=== PATIENT | female | born 1990 | race Caucasian/White ===

== ENCOUNTER → 2022-06-24 | Outpatient (CLI) | payer MEDICAID, SELFPAY ==
[2022-06-24 16:29] LABS: Absolute Lymphocyte Count 1.89 X10^3/uL (0.83-4.51); Absolute Neutrophil Count 3.1 X10^3/uL (2.0-7.7); Basophil# 0.02 X10^3/uL; Basophil% 0.4 % (0-1); Eosinophils% 1.8 % (0-5); Hematocrit 41.1 % (37-47); Hemoglobin 13.2 g/dL (12.0-15.0); Lymphocyte # 1.89 X10^3/ul (0.83-4.51); Lymphocyte % 34.1 % (19-41); Mean Corp Hgb Conc 32.1 g/dL (32-36); Mean Corpuscular Hgb 29.8 pg (27.0-32.0); Mean Corpuscular Volume 92.8 fL (81-99); Mean Platelet Vol. 11.6 fl (6.2-12.0); Monocyte# 0.42 X10^3/uL; Monocyte% 7.6 % (0-10); NRBC Flagged by Analyzer 0 % (0-5); Neutrophil # 3.09 X10^3/uL (2.7-7.7); Neutrophil % 55.7 % (47-70); Platelet Count 265 K/mm3 (150-450); RBC Distribution Width CV 12.7 % (11.6-14.6); RBC Distribution Width SD 43.6 fl (35.1-43.9); Red Blood Count 4.43 M/mm3 (4.2-5.4); White Blood Count 5.5 K/mm3 (4.4-11.0)
[2022-06-24 16:51] LABS: ALB/GLOB Ratio 1.2 RATIO (0.9-2.4); AST(SGOT) 16 U/L (15-37); Alanine Aminotransfer ALT/SGPT 30 U/L (13-56); Albumin, Serum 4.2 g/dL (3.2-5.0); Alkaline Phosphatase 55 U/L (45-117); Anion Gap 5 (5-15); BUN 16 mg/dL (7-18); BUN/Creat Ratio 27.5 RATIO (10-20); Calcium,Total 9.1 mg/dL (8.5-10.1); Chloride 105 mmol/L (98-107); Creatinine, Serum 0.58 mg/dL (0.55-1.02); EST Glomerular Filtration Rate 129 mL/min (>60); Est Glom Filt Rate - Afr Amer 156 mL/min (>60); Ferritin 43 ng/mL (8-252); Globulin 3.4 g/dL (2.2-4.2); Glucose 91 mg/dL (74-106); Iron 125 ug/dL (50-170); Iron Binding Capacity,Total 332 ug/dL (250-450); Potassium 4.1 mmol/L (3.5-5.1); Protein, Total 7.6 g/dL (6.4-8.2); Sodium Level 139 mmol/L (136-145)
[2022-06-24 16:53] LABS: Vitamin B12 932 pg/mL (211-911); Vitamin D,25 Hydroxy 96.9 ng/mL
== END | disposition home or self-care (01) ==
LOC: LABSPEC 15:37
PROVIDERS: Referring Provider Nurse Practitioner Family; Visit Provider Nurse Practitioner Family
DX: R53.83 Other fatigue (principal); R53.1 Weakness; R06.02 Shortness of breath; R63.4 Abnormal weight loss
CPT/HCPCS: 80053; 82306; 82607; 82728; 83540; 83550; 85025

== ENCOUNTER → 2022-08-06 | Outpatient (CLI) | payer MEDICAID, SELFPAY ==
[2022-08-08 08:08] LABS: Vitamin D,25 Hydroxy 84.6 ng/mL
== END | disposition home or self-care (01) ==
PROVIDERS: Visit Provider Nurse Practitioner Family
DX: E55.9 Vitamin D deficiency, unspecified (principal)
CPT/HCPCS: 82306

== ENCOUNTER → 2022-11-25 | Outpatient (CLI) | payer MEDICAID, SELFPAY ==
[2022-11-25 11:34] LABS: ALB/GLOB Ratio 1.2 RATIO (0.9-2.4); AST(SGOT) 18 U/L (15-37); Alanine Aminotransfer ALT/SGPT 25 U/L (13-56); Albumin, Serum 4.1 g/dL (3.2-5.0); Alkaline Phosphatase 50 U/L (45-117); Anion Gap 6 (5-15); BUN 14 mg/dL (7-18); BUN/Creat Ratio 19.1 RATIO (10-20); Calcium,Total 9.1 mg/dL (8.5-10.1); Chloride 105 mmol/L (98-107); Creatinine, Serum 0.73 mg/dL (0.55-1.02); EST Glomerular Filtration Rate 99 mL/min (>60); Est Glom Filt Rate - Afr Amer 120 mL/min (>60); Ferritin 23 ng/mL (8-252); Globulin 3.4 g/dL (2.2-4.2); Glucose 86 mg/dL (74-106); Iron 52 ug/dL (50-170); Potassium 4.2 mmol/L (3.5-5.1); Protein, Total 7.5 g/dL (6.4-8.2); Sodium Level 141 mmol/L (136-145)
== END | disposition home or self-care (01) ==
PROVIDERS: PCP Nurse Practitioner Family; Referring Provider Nurse Practitioner Family; Visit Provider Nurse Practitioner Family
DX: R59.0 Localized enlarged lymph nodes (principal); R53.82 Chronic fatigue, unspecified; R53.81 Other malaise; R06.02 Shortness of breath; R63.4 Abnormal weight loss
CPT/HCPCS: 80053; 82728; 83540

== ENCOUNTER → 2023-01-02 | Outpatient (CLI) | payer MEDICAID, SELFPAY ==
[2023-01-06 09:08] LABS: Immunoglobulin A 210 mg/dL (87-352); Immunoglobulin E 23 IU/mL (6-495); Immunoglobulin G 1271 mg/dL (586-1602); Immunoglobulin M 70 mg/dL (26-217)
== END | disposition home or self-care (01) ==
LOC: LABSPEC 15:48
PROVIDERS: PCP Nurse Practitioner Family; Referring Provider Nurse Practitioner Family; Visit Provider Nurse Practitioner Family
DX: B99.9 Unspecified infectious disease (principal)
CPT/HCPCS: 82784; 82785

== ENCOUNTER → 2023-02-21 | Outpatient (CLI) | payer MEDICAID, SELFPAY ==
[2023-02-21 15:59] LABS: Absolute Neutrophil Count 5.2 X10^3/uL (2.0-7.7); Basophil# 0.08 X10^3/uL; Eosinophil# 0.14 X10^3/uL; Eosinophils% 1.7 % (0-5); Hematocrit 42.3 % (37-47); Hemoglobin 13.8 g/dL (12.0-15.0); Lymphocyte % 27.7 % (19-41); Mean Corp Hgb Conc 32.6 g/dL (32-36); Mean Corpuscular Hgb 31.2 pg (27.0-32.0); Mean Corpuscular Volume 95.7 fL (81-99); Mean Platelet Vol. 11.9 fl (6.2-12.0); Monocyte% 7.2 % (0-10); NRBC Flagged by Analyzer 0 % (0-5); Neutrophil # 5.16 X10^3/uL (2.7-7.7); Platelet Count 268 K/mm3 (150-450); RBC Distribution Width CV 13.1 % (11.6-14.6); RBC Distribution Width SD 46.6 fl (35.1-43.9); Red Blood Count 4.42 M/mm3 (4.2-5.4); White Blood Count 8.3 K/mm3 (4.4-11.0)
[2023-02-21 16:31] LABS: ALB/GLOB Ratio 1.2 RATIO (0.9-2.4); AST(SGOT) 12 U/L (15-37); Alanine Aminotransfer ALT/SGPT 26 U/L (13-56); Alkaline Phosphatase 56 U/L (45-117); Anion Gap 7 (5-15); BUN 15 mg/dL (7-18); Chloride 106 mmol/L (98-107); Cholesterol 124 mg/dL (200); Creatinine, Serum 0.83 mg/dL (0.55-1.02); EST Glomerular Filtration Rate 85 mL/min (>60); Est Glom Filt Rate - Afr Amer 103 mL/min (>60); Ferritin 11 ng/mL (8-252); Free T3 2.7 pg/mL (2.18-3.98); Globulin 3.4 g/dL (2.2-4.2); Glucose 85 mg/dL (74-106); High Density Lipoprotein 45 mg/dL; Iron 66 ug/dL (50-170); Potassium 4.2 mmol/L (3.5-5.1); Protein, Total 7.4 g/dL (6.4-8.2); Sodium Level 141 mmol/L (136-145); T4 Free Direct 0.89 ng/dL (0.76-1.46); Thyroid Stim Hormone (TSH) 1.29 uIU/mL (0.358-3.74); Triglycerides 98 mg/dL; Very Low Density Lipoprotein 20 mg/dL (5-40)
[2023-02-21 16:45] LABS: Vitamin B12 628 pg/mL (211-911)
== END | disposition home or self-care (01) ==
PROVIDERS: PCP Nurse Practitioner Family; Referring Provider Nurse Practitioner Family; Visit Provider Nurse Practitioner Family
DX: R59.0 Localized enlarged lymph nodes (principal); R53.82 Chronic fatigue, unspecified; R53.81 Other malaise; R06.02 Shortness of breath; R63.4 Abnormal weight loss; F41.9 Anxiety disorder, unspecified; Z77.120 Contact with and (suspected) exposure to mold (toxic)
CPT/HCPCS: 84207; 80053; 80061; 82306; 82607; 82728; 83540; 84439; 84443; 84481; 85025

== ENCOUNTER 2023-06-06 08:00 | Outpatient (RCR) | payer MEDICAID, SELFPAY ==
--- NOTE | 2023-06-06 10:15 | BH.SGPN.GN ---
Behaviors/Verbalizations/Mental Status: []Pt alert and oriented, neatly dressed and groomed. Eye contact good. Motor activity appropriate. Speech within normal limits. Affect congruent-wearing a mask, mood anxious. Thoughts linear, logical, no signs of hallucinations or delusions. Client Response/Progress/Benefit: [] Pt engaged in group session AEB listening to others, taking notes throughout, and engaged in the activity. Group attentive during psychoeducation about emotion regulation and dysregulation. Pt?s first day of IOP tx, but she was nodding a lot while peers talked about the impacts of emotional dysregulation. Appeared to connect with scenarios reviewed in group on emotion regulation vs dysregulation. Pt benefited from session by gaining an increased understanding on the importance of managing emotions. Pt to continue IOP to prevent decompensation, reduce safety behaviors, and improve daily functioning. Narrative Note: []
--- NOTE | 2023-06-06 11:15 | BH.SGPN.GN ---
Behaviors/Verbalizations/Mental Status: []Pt alert and oriented, casually dressed and groomed. Eye contact good. Motor activity appropriate. Speech within normal limits. Affect congruent, mood anxious. Thoughts linear, logical, no signs of hallucinations or delusions. Client Response/Progress/Benefit: [] Pt active participant in session AEB Pt listening attentively to peers and at times providing input. Attentive during psychoeducation on 4 zones of regulation. Pt able to identify feelings and behaviors for each zone. Pt identified coping skills one can use to support self in each zone. Identified one skill from each zone she can practice which included: win journal, celebrate wins, breathing exercises, and progressive muscle relaxation. Benefited from increased education on zones of regulation or stages of alertness for emotions and healthy coping skills to use for each zone. Will continue IOP tx to continue working on fear ladder, increase distress tolerance, and prevent decompensation.
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
--- NOTE | 2023-06-06 11:20 | BH.MTP ---
Master Treatment Plan Patient Information Program Physician:: Dr. Casey Primary Therapist:: Kami WHITE Psychiatric Diagnoses Psychiatric Diagnoses:: OCD F 44; PTSD; Major Depressive Disorder, recurrent, severe, without psychosis, Generalized anxiety disorder Diagnosis Code(s):: F 42 Estimated LOS Estimated LOS (in weeks):: 6 Problem/Goal #1 Problem/Goal #1 Stated Goal:: Pt will reduce overall frequency and intensity of anxiety, OCD, and intrusive thoughts so that daily functioning is less impaired. Description of Barriers: Pt has severe OCD that is preventing pt from living her life and building relationships. Pt also has history of trauma that reinforces her OCD cleanliness obsessions and compulsions. Pt recently lost her job and due to issues with mold, pt had recent healthy issues and lost most of her belongings. Pt also moved to a new city and has limited support outside of her parents. Functional Impact: Pt is a 33 year-old female with a history of OCD, PTSD, LUX, and MDD. Pt was referred to [facility] tx by her outpatient therapist due to exacerbation of mental health symptoms which have been impacting her functioning. Pt's symptoms have been worsening since pt was fired from her job with little explanation. Pt has struggled with mental health for years, but pt's OCD symptoms have become very severe. Pt reports she has intrusive thoughts about contamination and health and compulsions of handwashing up to 100 times a day. 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 Pt currently endorses a depressed mood, crying spells, thoughts of , isolation, avoidance, poor concentration, issues with memory, panic attacks, constant fear, and racing thoughts. Pt's symptoms are impacting her daily, occupational, familial, and social functioning. Goal Relevant Strengths/Supports: Pt has support from her parents and she is highly motivated. Pt has had therapy in the past and found it helpful. Objectives Objective #1: Stated Objective: Pt will identify 2-3 anxiety and OCD triggers and 2 coping skills to use to manage anxiety as shown by reducing DSM-5 scores for anxiety and OCD. Interventions: Through group and individual sessions, pt will gain awareness of anxiety and OCD triggers and learn numerous techniques to manage anxiety and OCD symptoms. Therapist will teach mindfulness and other calming techniques to manage symptoms and increase distress tolerance skills. Therapist will also help pt utilize mindfulness skills to sit with the uncomfortable to increase confidence in managing triggers. Discharge Criteria: Pt will have met this goal when pt can identify at least 2 triggers and 2 ways to cope with anxiety and show a reduction of DSM-5 scores for anxiety and OCD. Target Date: 07/18/23 Review Date: 06/27/23 Status: open Objective #2: Stated Objective: Pt will improve ability to cope with OCD symptoms and reduce avoidance by setting 1-2 small exposure goals each week. Interventions: Through group and individual therapy, pt will gain skills on distress tolerance and sitting with the uncomfortable. Therapist will help pt set small, realistic exposure goals each week. Therapist will have pt practice these goals both in session and at home. Therapist will provide psychoeducation on why this is important to reducing anxiety, OCD, and phobias. Therapist will also provide psychoeducation on intrusive thinking and reducing safety behaviors. Discharge Criteria: Pt will have accomplished this goal when pt can report accomplishing at least 1 exposure goal per week and can report reduced avoidance overall. Target Date: 07/18/23 Review Date: 06/27/23 Status: open Problem/Goal #2 Problem/Goal #2 Stated Goal:: Pt will reduce depressive symptoms, lack of motivation, and passive thoughts of due to major depressive disorder Description of Barriers: Pt has severe OCD that is preventing pt from living her life and building relationships. Pt also has history of trauma that reinforces her OCD cleanliness obsessions and compulsions. Pt recently lost her job and due to issues with mold, pt had recent healthy issues and lost most of her belongings. Pt also moved to a new city and has limited support outside of her parents. Functional Impact: Pt is a 33 year-old female with a history of OCD, PTSD, LUX, and MDD. Pt was referred to [facility] tx by her outpatient therapist due to exacerbation of mental health symptoms which have been impacting her functioning. Pt's symptoms have been worsening since pt was fired from her job with little explanation. Pt has struggled with mental health for years, but pt's OCD symptoms have become very severe. Pt reports she has intrusive thoughts about contamination and health and compulsions of handwashing up to 100 times a day. 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 Pt currently endorses a depressed mood, crying spells, thoughts of , isolation, avoidance, poor concentration, issues with memory, panic attacks, constant fear, and racing thoughts. Pt's symptoms are impacting her daily, occupational, familial, and social functioning. Goal Relevant Strengths/Supports: Pt has support from her parents and she is highly motivated. Pt has had therapy in the past and found it helpful. Objectives Objective #1: Stated Objective: Pt will learn and utilize 2-3 healthy coping strategies to better manage depressive symptoms and reduce DSM-5 symptoms for depression. Interventions: Through group and individual sessions, therapist will help pt identify triggers and warning signs of depression and emotional dysregulation including emotional, physical, and behavioral changes. Therapist will teach pt various coping skills to manage her symptoms. Therapist will use cognitive restructuring techniques and help pt gain awareness of negative thoughts that reinforce depressive cycles. Therapist will help pt incorporate mindfulness and emotional regulation skills when dealing with difficult situations. Discharge Criteria: Pt will have met this goal when she can report learning and using at least 2 coping skills to manage depressive symptoms and her DSM-5 scores for depression have decreased. Target Date: 07/18/23 Review Date: 06/27/23 Status: open Objective #2: Stated Objective: Pt will identify at least 2-3 negative self-talk messages used to reinforce negative core beliefs, worthlessness, and isolation and replace thoughts with balanced, realistic messages. Interventions: Therapist will help pt identify distorted, negative beliefs about self and replace with more realistic, affirmative messages. Therapist will use CBT and DBT to help pt increase insight to the connection between thoughts, emotions, and behaviors. Therapist will encourage pt to practice thought challenging. Discharge Criteria: Pt will have achieved this goal when can verbalize at least 2 cognitive distortions and effectively replace those thoughts with affirmative messages. Target Date: 07/18/23 Review Date: 06/27/23 Status: open
--- NOTE | 2023-06-06 11:20 | BH.COMM ---
Communication Note Communication with Client Communication Note: Met with pt to complete initial paperwork and administer the CSSR-S screening and risk assessment. Pt is low risk per the CSSR-S screening and risk assessment. Pt has fleeting thoughts about not wanting to wake up, but this is only when pt feels that her anxiety and OCD are too severe. Pt has numerous protective factors including wanting to get some day and have kids, her ed, and her family. Discussed case with Dr. Casey and pt will be admitted to [facility] tx with a diagnosis of OCD (F 44)
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
--- NOTE | 2023-06-07 08:42 | BH.COMM_ITS ---
Communication Note Communication with Client Communication Note: Pt was scheduled to meet with program psychiatrist this AM, however psychiatrist became acutely ill (laryngitis and fever) and is unable to come to work. Discussed case with treatment team and psychiatrist. Plan to continue with admission to [facility] with dx of Obsessive Compulsive Disorder (F42.0) and she will be evaluated once psychiatrist is able.
--- NOTE | 2023-06-07 10:15 | BH.SGPN.GN ---
Behaviors/Verbalizations/Mental Status: []Pt alert and oriented, neatly dressed and groomed. Eye contact good. Motor activity appropriate. Speech within normal limits. Affect congruent-wearing a mask. mood anxious. Thoughts linear, logical, no signs of hallucinations or delusions. Client Response/Progress/Benefit: [] Pt was an active participant in group discussions and experiential activity. Participated during interactive discussion in which group worked together to define resilience (i.e. continuing to bounce back from hardship; willingness to keep trying) and what makes being resilient hard. Pt shared learned helplessness and trauma can make it harder to be resilient. Participated during interactive discussion on if resilience is something we are born with or can learn. Able to relate the experiential activity back to topic of resilience. Worked well in small groups to identify strategies to build resilience. Benefited from increased awareness of the role of resilience in mental health and ways to build resilience. Will continue IOP tx to prevent decompensation, improve daily functioning, and increase distress tolerance skills. Narrative Note: []
--- NOTE | 2023-06-07 10:33 | BH.NA_ITS ---
Physical Data Vital Signs Pulse Rate: 70 Blood Pressure: 124/78 Height/Weight Height: 1.7 m Weight:: 53.524 kg Weight in Pounds: 118.0 lbs Current Medication Compliance Medication Compliance Do you take your medication as prescribed?: Yes Nutritional History Appetite Nutritional Instructions: Describe your appetite:: Fair Additional nutritional information:: Client states she was 130lbs prior to mold exposure one year ago, and her lowest weight was 116lbs. Client states she is trying to maintain/gain a little weight, but did have several months of nausea/vomiting after mold exposure. Client states her appetite is improving. Functional Assessment Sleep Pattern Describe any problems with sleeping: Client states she sleeps about 6-7 hours per night. Sensory/Communication Assess Communication Problems Do you have difficulty understanding what people are saying?: No Medical Problems/History Pain Assessment Do you have acute or chronic pain?: No Additional History Additional comments:: Lyme Disease Surgical History Surgical History Have you had any surgeries? If so, list type and date:: No Substance Abuse Substance Abuse Please describe substance abuse in the last 30 days:: Client denies alcohol, tobacco or substance use. Client states she drinks 8oz or less of coffee per day. Mental Status Summary Mental Status Significant Findings/Observations on Appearance and Mood:: Client is alert and oriented x 4. Client is casually groomed and is wearing a mask .Client is cooperative with assessment. Client makes good eye contact. Client's voice has normal rate and volume. Client does appear mildly anxious. Client has appropriate affect. Client makes logical associations and has normal processing. Client denies delusions/hallucinations. Client denies SI. Suicide Assessment Suicidal Ideation Are you currently or have you been suicidal in the past?: No Suicidal Intentional Rating Scale (SIRS): No suicidal thoughts (past or present) Physician Notification Past Psychiatric History MH Treatment Hx Past Psychiatric Medications:: Client has been on Zoloft since 2011 and has not been on any other mental health medications Age of first mental health symptoms: Client states she has had anxiety and some OCD symptoms for over 11 years (before age 22) and has been on medications since age 22. Current providers for mental health treatment (counselor, psychiatrist, protective services case worker, etc.): Client saw Dr. Ar Aquino one time, client also has a counselor Fall Risk Assessment Age Age: Less than 60 Mental Status Mental Status: Willing & able to ask for assistance when needed Physical Status Physical Status: No problems Impairments Impairments: None Elimination Elimination: Continent AND independent Gait or Balance Gait or Balance: Walks independently Hx of Falls History of falls in the past 6 months: No known history Medications/Substances Psychotropics:: Antidepressants Medications/substances used within the past 24 hours or ordered to administer: 1-2 of the medications/substances listed above Total Score Total Points:: 1 RN Summary of Impressions Impressions Recommendations Impressions: Psychiatric Issues: OCD, generalized anxiety disorder Level of Care How do the client's current symptoms and functional deficits support need for this level of care?: Client was referred to IOP by outpatient therapist for increase in an anxiety and increased intrusive thoughts regarding health concerns. Client states she had a severe mold exposure about a year ago, and had symptoms related to that (hair loss, weight loss, nausea/vomiting). Client states she also has had COVID several times, the last time being April 2023 which has given her continued brain fog. Client states she is on naltrexone due to brain fog. Client states she obsessively washes her hands and sometimes has more anxiety around people because she feels unsafe from contamination. Client states I know it sounds ridiculous, but even when I was the one that had COVID a few weeks ago, I was terrified I would decontaminate myself and I was washing my hands so many times a day . Client states she was on 100mg of Zoloft daily, and is currently down to 37.5mg daily due to weaning to take antifungal medications for mold exposure. Client states I don't think Zoloft ever really worked that well for me, but I really don't think its beneficial at all at 37.5mg . Client denies SI. IOP will promote gains and prevent further decompensa tion while providing social support and skills training.
[2023-06-07 10:44] VITALS: BP 124/78; PULSE 70
--- NOTE | 2023-06-07 11:15 | BH.SGPN.GN ---
Behaviors/Verbalizations/Mental Status: [] Eye contact is good. Motor activity is appropriate. Appearance is casual. Speech is Appropriate. Mood is anxious. Affect is congruent. Thoughts are linear and logical. No evidence of psychosis. Client Response/Progress/Benefit: [] Pt was an active participant in group discussions. Participated during interactive discussions and in experiential activity with peers. Pt identified 3 resiliency traits they have and how these traits currently help them. Pt identified Making Connections stating that her support system is important in keeping her going and encouraged.Another resilency traits she has is keeping things in perspective which helps her challenge if her anxiety is realistic. Benefited from practicing resiliency traits during experiential activity and identifying personal resiliency factors.Will continue in IOP to prevent decompensation, stabilize mood, increase healthy coping, and improve functioning. Narrative Note: []
--- NOTE | 2023-06-09 09:05 | BH.SGPN.GN ---
Behaviors/Verbalizations/Mental Status: [] Pt alert and oriented, neatly dressed and groomed. Eye contact good. Motor activity appropriate. Speech within normal limits. Affect congruent-wearing a mask, mood anxious. Thoughts linear, logical, no signs of hallucinations or delusions. Reviewed pt?s symptom tracker, no risk for suicidal ideation, plan, or intent 06/09/23 Client Response/Progress/Benefit: []Pt responded well to session, attentive and engaged. Pt reports feeling expectant today as pt made it through her first week of IOP tx and pt hopes that growth is coming for pt. Pt stated yesterday she had the day off and this felt like pressure to pt so she struggled with getting out of bed. Pt did end up getting some things done and pt gave herself credit in a win journal. Pt has been struggling with OCD symptoms that have been impacting pt's overall functioning and kept pt from living her life. Pt appeared to benefit from reflecting on her willing to learn and gain skills. Pt will continue IOP tx to prevent decompensation, improve daily functioning, and increase distress tolerance skills. Narrative Note: []
--- NOTE | 2023-06-09 10:10 | BH.SGPN.GN ---
Behaviors/Verbalizations/Mental Status: []Client alert and oriented, casually dressed and groomed. Eye contact good. Motor activity appropriate. Speech within normal limits. Affect congruent, mood content and anxious. Thoughts linear, logical, no signs of hallucinations or delusions. Client Response/Progress/Benefit: []Client receptive to session AEB providing input throughout, listening attentively to others, and taking notes. Attentive throughout psychoeducation on the cognitive triangle and maintenance cycles. Worked on identifying own vicious cycle. Engaged in group discussion reviewing the impact of daily activities and behaviors in either reinforcing unhealthy maintenance cycles and depression or assisting in reducing symptoms (?down? vs ?up? activities). Client identified common ?down? activities they engage in as: isolating, snoozing her alarm, focusing on what she did wrong, and not setting goals. Common ?Up? activities client identified included: playing with pets, reading her bible, walking, stretching, and being social. Appeared to benefit from increased awareness of current behaviors and impact these have on mental health. Pt to remain in IOP tx to improve mood stability, increase use of distress tolerance/exposure skills, and prevent decompensation. Narrative Note: []
--- NOTE | 2023-06-09 11:10 | BH.SGPN.GN ---
Behaviors/Verbalizations/Mental Status: [] Eye contact is good. Motor activity is appropriate. Appearance is casual. Speech is Appropriate. Mood is euthymic. Affect is congruent. Thoughts are linear and logical. No evidence of psychosis. Client Response/Progress/Benefit: [] Pt responded well to session, attentive and engaged in group discussions and activity. Group discussed values and the benefits that knowing one's values can have on one's mental health. Pt explored own values and identified personal top values. Pt stated important value is mental/emotional health. Client set goals to join a musical group and use skills at home that she's learning from IOP. Pt appeared to benefit from exploring values and creating a weekly goal. Will continue in IOP to decrease anxious avoidance, increase healthy calming skills, and prevent decompensation.
--- NOTE | 2023-06-12 09:00 | BH.SGPN.GN ---
Behaviors/Verbalizations/Mental Status: [] Pt alert and oriented, neatly dressed and groomed. Eye contact good. Motor activity appropriate. Speech within normal limits. Affect congruent-wearing a mask, mood hopeful and anxious. Thoughts linear, logical, no signs of hallucinations or delusions. Reviewed pt?s symptom tracker, no risk for suicidal ideation, plan, or intent 06/12/23 Client Response/Progress/Benefit: [] Pt responded well to session, attentive and providing feedback to peers. Pt reports feeling hopeful this morning as pt saw some progress over the weekend with managing her OCD. Pt shared that she had been engaging in a compulsion of cleaning the washing machine after her clothes were clean, but she did not do this yesterday. Pt reported this gave her hope that she can learn to manage her symptoms. Pt was also vulnerable during group and shared about her struggles with OCD which helped pt reduce stigma and gain support. Pt's stressor this morning was her poor sleep hygiene and wanting to get back on a sleep schedule. Pt appeared to benefit from group feedback and support. Pt will continue IOP tx to prevent decompensation, improve daily functioning, and increase healthy coping skills. Narrative Note: []
--- NOTE | 2023-06-12 10:10 | BH.SGPN.GN ---
Behaviors/Verbalizations/Mental Status: [] Eye contact is good. Motor activity is appropriate. Appearance is casual. Speech is Appropriate. Mood is anxious and dysthymic. Affect is congruent. Thoughts are linear and logical. No evidence of psychosis. Client Response/Progress/Benefit: [] Pt was an active participant in group discussions. Attentive during psychoeducation on the 4 communication styles (Passive, Passive-Aggressive, Aggressive, and Assertive) and the obstacles to effective communication. Contributed during interactive discussion on the benefits of communicating effectively which included; having one's needs met, building connection with others, decreases stress and uncertainty, improved relationships, encouragement/increased motivation, increased trust, and increased understanding of others. Worked well in small group in which pt and peers identified the benefits and disadvantages to the different communication styles. Benefited from increased understanding of communication styles and how these can impact effective communication. Pt reports identifying most with passive communication, reporting this leads to not getting her needs met and over engaging in people pleasing behaviors. Will continue in IOP to prevent decompensation, reduce safety behaviors, and continue to improve functioning. Narrative Note: []
--- NOTE | 2023-06-12 14:26 | BH.MDN ---
Multi-Disciplinary Note Note 45-min Individual: Time Started:: 12:30 Date: 06/12/23 Purpose of session/treatment goals addressed:: To work on goal #1 of pt's tx plan. Eye Contact:: Good Motor Activity:: Appropriate Appearance:: Neat Speech:: Tangential and Rapid Mood:: Anxious Affect:: Congruent Thoughts:: Racing, Circular and No evidence of hallucinations/delusions noted Staff Interventions:: thought challenging, psychoeducation on: (OCD and setting goals for exposure therapy.), CBT techniques, strengths perspective, goal setting and other (reviewed homework- chapter one of the overcoming unwanted intrusive thoughts book.) Client Response:: Pt responded well to session, open to meeting with therapist. Pt shared a mental health win from over the weekend which was that pt did not wipe down the laundry machine after washing her clothes. Pt stated her intrusive thoughts often convince pt that things in her house are contaminated and this has significantly worsened since getting since a few weeks ago. Pt shared she worries that things she has already cleaned are still contaminated from when pt was sick. Pt reported that she logically knows she is having dumb thoughts, but pt is unable to move past these. Pt connected with the first chapter from the book mentioned above. Pt shared that her OCD is exhausting and consumes most of her time and energy. Pt receptive to working on identifying her false comfort / safety behaviors which will help pt create a fear ladder. These included: wearing a mask, taking a pen with her wherever she goes, having to change her clothes when she gets home, wiping things down multiple times a day, cleaning and rewashing things, and avoiding touching things. Pt shared her biggest fear is that she will get sick again like she did a few weeks ago or she will . Pt began ranking these safety behaviors by how much fear/anxiety they produce (1-10 with 10 being extreme fear). Pt will work on identifying more behaviors for homework that are less than 7/10 for anxiety. Risks/Concerns:: Pt denies any suicidal ideations or thoughts of . Progress Toward Goals/Plan:: Pt is starting her second week of IOP tx and pt reports benefitting from the group environment. Pt has also been more mindful of her compulsions and is working on reducing the frequency that she engages in these compulsions. Pt's OCD continues to interfere with her daily functioning and relationships. Pt reports she is still washing her hands constantly and she is constantly thinking about contamination risk. Pt receptive to working on a fear ladder and reading through the overcoming unwanted intrusive thoughts book. Pt will continue IOP tx to prevent decompensation, improve daily functioning, and gain distress tolerance skills. Time Stopped:: 13:15
--- NOTE | 2023-06-13 11:10 | BH.SGPN.GN ---
that the communication styles she commonly uses. She wants to work on being more assertive by practicing self confidence through I statements . Benefited from practicing in the moment communication skills as well as increased awareness of communication styles commonly used. Will continue in IOP to prevent decompensation, increase healthy coping, and improve functioning to return to work. Narrative Note: []
--- NOTE | 2023-06-14 11:15 | BH.SGPN.GN ---
Behaviors/Verbalizations/Mental Status: []Pt alert and oriented, neatly dressed and groomed. Eye contact good. Motor activity appropriate. Speech within normal limits. Affect congruent-wearing a mask, mood anxious. Thoughts linear, logical, no signs of hallucinations or delusions. Client Response/Progress/Benefit: [] Pt responded well to session, participating in activity and small group discussion. Group reviewed the rest of the defense mechanisms and discussed how these are adaptive, maladaptive, or somewhere in the schmidt. Pt shared her group discussed how suppression has caused more damage in their lives. Pt participated in the experiential activity which encouraged pts to draw a castle that portrayed their different defense mechanisms. Pt's defense mechanisms included suppression, denial, and rationalization. Pt shared that she is learning that she rationalizing a lot coping mechanisms that actually make anxiety worse. Pt reports wanting to work on reducing rationalizing by reducing engagement in safety behaviors. Appeared to benefit from gaining insight to the different defense mechanisms and learning coping skills. Pt will continue? IOP tx to prevent decompensation, improve daily functioning, and gain healthy coping skills. Narrative Note: []
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
--- NOTE | 2023-06-14 13:16 | BH.DR.ITP ---
Initial Treatment Plan Patient Information Visit Information: ADMISSION DATE: EXPECTED LOS: 4-6 weeks Problems/Symptoms Problem #1:: Anxiety Symptom:: Worry, rumination, panic attacks, intrusive thoughts, repetitive rituals, fear of contamination and illness, avoidance Problem #2:: Depression Symptom:: Sadness, hopelessness, worthlessness, guilt, anhedonia, passive thoughts of , biological disruption of weight and appetite, decreased concentration
--- NOTE | 2023-06-15 09:05 | BH.SGPN.GN ---
Behaviors/Verbalizations/Mental Status: [] Pt alert and oriented, casually dressed and groomed. Eye contact good. Motor activity appropriate. Speech within normal limits. Affect congruent, mood anxious. Thoughts linear, logical, no signs of hallucinations or delusions. Reviewed pt?s symptom tracker, no risk for suicidal ideation, plan, or intent 06/15/23 Client Response/Progress/Benefit: []Pt responded well to session, participating in processing and providing supportive feedback. Pt reports feeling like I'm in anticipation this morning sharing that she had a lot of anxiety yesterday and is trying to keep that from impacting her ability to be present today. Pt reports that she is going to try and practice mindfulness skills at various points throughout the day should she notice herself starting to disconnect. Expressed a mental health win as getting here today despite her anxiety. Additional win noted as having a conversation with her brother and learning more about her nephew. Shared this continues to be a stressor as she is somewhat estranged, but pt reports being grateful for what communication they have been able to have. Pt appeared to benefit from self-reflection on areas of progress, as well as from group support. Pt will continue IOP tx to maintain mood stability, continue to promote challenging her safety behaviors, and prevent decompensation. Narrative Note: []
--- NOTE | 2023-06-15 10:10 | BH.SGPN.GN ---
Behaviors/Verbalizations/Mental Status: [] Eye contact is good. Motor activity is appropriate. Appearance is casual. Speech is Appropriate. Mood is euthymic. Affect is congruent. Thoughts are linear and logical. No evidence of psychosis. Client Response/Progress/Benefit: []Pt engaged participant AEB listening to others, engaging in activity, and providing feedback at times. Attentive during psychoeducation and provided insight into obstacles in the way of mental wellness. Pt shared with group current mental health reality and desired mental health reality. Stated coming to IOP as step she is currently making to get closer to desired reality. Identified barriers to desired reality include: Self judgment, hiding feelings, habits to support anxiety, negative thinking, and low energy. Benefited from taking look at current mental health state and obstacles for progress. Pt to continue IOP to continue working on exposure therapy for anxiety, continue use of healthy coping skills, and prevent decompensation.
--- NOTE | 2023-06-15 11:10 | BH.SGPN.GN ---
Behaviors/Verbalizations/Mental Status: []Pt alert and oriented, casually dressed and groomed. Eye contact good. Motor activity appropriate. Speech within normal limits. Affect congruent, mood anxious, euthymic. Thoughts linear, logical, no signs of hallucinations or delusions. Client Response/Progress/Benefit: []Pt an active participant, encouraging peers and contributed as group brainstormed ideas on how to cope with internal barriers that keep Pt's stuck from moving towards goals. Worked with group to identify strategies to help overcome barriers. Identified personal barriers to desired reality. Pt wants to work on overcoming the barrier of feeling behind on her priorities by writing a daily to do list and prioritizing them by importance, as well as using opposite action. Benefited from group by identifying obstacles and solutions to desired reality.? Pt to continue IOP to prevent , reduce the use of unhealthy coping skills, and improve self-compassion. Narrative Note: []
--- NOTE | 2023-06-20 10:17 | BH.SGPN.GN ---
Behaviors/Verbalizations/Mental Status: [Patient was alert and oriented, casually dressed and groomed. Eye contact was good, motor activity normal, speech within normal limits. Affect congruent, mood anxious and content. Thoughts linear, logical, no signs of hallucinations or delusions. ] Client Response/Progress/Benefit: [Patient was an active participant in the group discussions AEB providing input and taking notes. Attentive during psychoeducation Goal Setting. Participated during the discussion on common barriers (procrastination, low motivation, unrealistic expectations, and fear of failure) and benefits (increased confidence, motivation, sense of purpose, and improved mood stability) of effective goal setting and completion. Patient reports struggling specifically with barriers of self-doubt, unrealistic expectations, and fear of failure. Benefited from increased awareness of mental health benefits of goals as well as psychoeducation on SMART goal criteria. Will continue in IOP to promote gains, further combat distorted thinking, and improve daily functioning.] Narrative Note: []
--- NOTE | 2023-06-20 11:05 | BH.SGPN.GN ---
Behaviors/Verbalizations/Mental Status: []Pt alert and oriented, casually dressed, appropriately groomed. Eye contact good. Motor activity appropriate. Speech within normal limits. Affect congruent, mood anxious and euthymic. Thoughts linear, logical, no signs of hallucinations or delusions. Client Response/Progress/Benefit: [] Pt was engaged during discussion and willing to complete the worksheet challenging them to develop a personal SMART goal. Pt chose the goal of only checking to see if the faucets are on 1-2 times prior to leaving the house in the morning. Pt stated this will help start morning off feeling more positive about self and less rushed. Pt identified intrusive thoughts as a barrier. Identified solutions such as creating a check list for herself, taking pictures, and continuing with her routine despite the thoughts. Pt receptive to identifying solutions for these barriers and willing to begin working on this goal. Benefited from this group by developing a short-term SMART goal related to mental health. Will continue IOP tx to improve self-compassion, increase healthy exposure, and prevent decompensation. Narrative Note: []
--- NOTE | 2023-06-21 09:10 | BH.SGPN.GN ---
n for today is optimistic . Daily sypmtom tracker notes 06/30 for anxiety and depression. Reports mood overall improved. Shared with the group the events that occurred over the holiday weekend. Commented on a reduction in her intrusive thoughts and anxiety of the past week. Discussion within the group helped her identify perspective and skills that have helped decrease anxiety and rumination. Pt reports I'm living in the moment more stating that she is actively utilizing strategies to stay engaged in the present discussions and responsibilities rather than focusing on what ifs of the future and possible upcoming stressors. Mindfulness. Progress noted per pt report as she is actively utilizing skills and implementing psychoeducation in areas of her life. Benefited from group support, encouragement, and feedback. Will continue in IOP to prevent decompensation, stablize mood, and improve functioning. Narrative Note: []
--- NOTE | 2023-06-22 09:05 | BH.SGPN.GN ---
Behaviors/Verbalizations/Mental Status: [] Eye contact is good. Motor activity is appropriate. Appearance is casual. Speech is Appropriate. Mood is anxious. Affect is congruent. Thoughts are linear and logical. No evidence of psychosis. Reviewed daily check in sheet and no reports of suicidal ideations or intent. Client Response/Progress/Benefit: [] Pt was an active participant in group discussion. Attentive. Emotion is upbeat and discouraged . Daily symptom tracker notes 2/5 for anxiety and 1/5 for depression. Reports being motivated at [facility] and in other areas (volunteering, with family) however struggles when she is alone with avoidance. Reports returning home from [facility] and sitting in the car for 15 minutes b/c she is avoiding going into her home. She will then find herself avoiding tasks and waiting till she falls asleep . Verbalized internal thoughts and lack of motivation. Group provided suggestions and feedback regarding avoidance and behavioral activation which was beneficial. Will continue in [facility] to prevent decompensation, stabilize mood, improve functioning, and increase healthy coping. Narrative Note: []
--- NOTE | 2023-06-22 10:10 | BH.SGPN.GN ---
Behaviors/Verbalizations/Mental Status: []Pt alert and oriented, casually dressed and groomed. Eye contact good. Motor activity appropriate. Speech within normal limits. Affect congruent, mood euthymic. Thoughts linear, logical, no signs of hallucinations or delusions. Client Response/Progress/Benefit: []Pt receptive of session, actively engaged throughout AEB taking notes, providing input, and listening to discussion. Appeared to connect with group topic of cognitive distortions and the impact of thought patterns on mental health, coping behaviors, and relationships. Pt connected most with distortions of shoulds/musts, disqualifying the positives, and mental filter. Pt able to identify how these distortions impact functioning. Pt appeared to benefit from gaining insight on distorted thinking patterns and how this impacts overall mental health. Will continue IOP tx to improve distress tolerance, challenge distortion thoughts, and prevent decompensation.
--- NOTE | 2023-06-22 11:15 | BH.SGPN.GN ---
Behaviors/Verbalizations/Mental Status: [] Eye contact is good. Motor activity is within normal limits. Appearance is casual. Speech is Appropriate. Mood is content and anxious. Affect is congruent. Thoughts are linear and logical. No evidence of psychosis. Client Response/Progress/Benefit: [] Pt was an active participant during group discussions and activity. Pt was placed in a smaller group and participated in quiz-show format in which small groups competed against each-other to answer questions based on identifying, challenging, and reframing cognitive distortions. Pt was engaged in the smaller group, participated in group interactions to brainstorm answers, and appeared to be comprehending cognitive distortions. Stated learning that ?I tend to focus on the negative rather than give myself credit for my small wins/progress?. Benefited from gaining further insight and awareness of cognitive distortions as well as practicing ways to reframe and challenge thoughts. Will continue in IOP to promote use of anxiety management skills, stabilize mood, and improve ability to function. Narrative Note: []
--- NOTE | 2023-06-23 09:05 | BH.SGPN.GN ---
Behaviors/Verbalizations/Mental Status: [] Pt alert and oriented, neatly dressed and groomed. Eye contact good. Motor activity appropriate. Speech within normal limits. Affect congruent-wearing a mask, mood anxious and sad. Thoughts linear, logical, no signs of hallucinations or delusions. Reviewed pt?s symptom tracker, no risk for suicidal ideation, plan, or intent 06/23/23 Client Response/Progress/Benefit: []Pt responded well to session, attentive and participating in the [facility]AD activity. Pt reports feeling mediocre this morning as pt shared she is grateful to be getting treatment, but my family dynamic right now is not great. Pt stated that she used to be very close with her brother, but they are currently estranged. Pt reports mental health wins as not avoiding tasks yesterday and continuing to work on herself. Pt appeared to benefit from practicing a self-reflection technique and from group support. Pt will continue IOP tx to promote mood stability, increase emotional regulation skills, and improve daily functioning. Narrative Note: []
--- NOTE | 2023-06-23 10:10 | BH.SGPN.GN ---
Behaviors/Verbalizations/Mental Status: []Pt alert and oriented, casually dressed and groomed. Eye contact good. Motor activity appropriate. Speech within normal limits. Affect congruent, mood anxious and euthymic. Thoughts linear, logical, no signs of hallucinations or delusions. Client Response/Progress/Benefit: [] Pt receptive to session AEB contributing to small group discussion, as well as listening attentively to others, and taking notes. Worked with group to brainstorm the positive and negative aspects of stress on physical and mental health. Group did well to identify the benefits of stress as well as the impact of distress on performance, relationships, and mental health. Pt identified their personal top stressors as: anxiety, family, money, and intrusive thoughts. Pt seemed to benefit from increased awareness of current stressors and impact stress has on mental health. Recommended to continue IOP tx to continue working on exposure therapy to reduce anxious symptoms, increase confidence/view of self, and prevent decompensation.
--- NOTE | 2023-06-23 11:10 | BH.SGPN.GN ---
Behaviors/Verbalizations/Mental Status: []Pt alert and oriented, casually dressed and groomed. Eye contact good. Motor activity appropriate. Speech within normal limits. Affect congruent, mood anxious and euthymic. Thoughts linear, logical, no signs of hallucinations or delusions. Client Response/Progress/Benefit: [] Pt was an active participant in group discussions and experiential activity. Was able to identify the connection between the experimental activity and utilization of stress management skills. Pt reported good succeeded because of their clear communication. Attentive during psychoeducation on the 4 A's (Avoid, adapt, alter, accept) of coping with stress. Pt shared plans to utilize the skill of accepting her anxiety and focusing on what is within her control. Benefited from increased awareness of stress management strategies. Will continue in IOP to decrease avoidance of anxious situations, challenge distortions, and prevent decompensation.
--- NOTE | 2023-06-23 14:21 | BH.MDN_ITS ---
Multi-Disciplinary Note Note 60-min Individual: Time Started:: 12:10 Date: 06/23/23 Purpose of session/treatment goals addressed:: To work on goal #1 of pt's tx plan and to combat any negative self-talk messages reinforcing fear of failure. Eye Contact:: Good Motor Activity:: Appropriate Appearance:: Casual Speech:: Rambling and Rapid Mood:: Anxious and Depressed Affect:: Congruent (wearing a mask. Tearful at times) Thoughts:: Racing and No evidence of hallucinations/delusions noted Staff Interventions:: thought challenging, motivational interviewing (used when discussing medication recommendations from psychiatrist.), CBT techniques, mindfulness skills, strengths perspective, goal setting and other (set exposure goals for the weekend and discussed plan for next week.) Client Response:: Pt responded well to session, open to meeting with therapist. Pt reports that she is feeling more down today because pt had a setback earlier this week. Pt stated she had a panic attack while in a store with her mother due to finding out that the parimutuel cashier had been sick. Pt shared that she made her mom leave the store and pt felt embarrassed. Pt was tearful and begin to self-criticize. Pt receptive to self-compassion techniques used by therapist and this led to a discussion of setting more realistic exposure goals. Pt admits that because she wants to get better, she has been trying to push herself too hard and this has not been effective. Pt shared she ends up just avoiding things because I'm so anxious to have to face them. Pt gave an example of how she has been avoiding drinking coffee at home because she is fearful that her coffee pot is still contaminated even though pt has cleaned it several times. Pt has also not been bringing her IOP binder into her house for fear of contamination as well. Pt receptive to discussion of ERP and how it involves setting realistic exposure goals, repeating the exposure, setting rules for herself, and forcing herself to reduce engagement in compulsions. Discussed how pt could set a goal to bring her binder into her house this weekend and challenge herself to only wash it off once. Pt also will clean her coffee pot one more time and then use it at least twice. Pt appeared to benefit from d iscussion on gradual change and harms reduction while working towards eliminating a behavior entirely. Risks/Concerns:: No report of SI or thoughts of today. Discussed pt's concerns regarding medication and identified the pros and cons. Therapist expressed concern that pt may not get the full benefit of IOP without the assistance of medication which is congruent with Dr. Casey's recommendations. Progress Toward Goals/Plan:: Pt is making some progress towards IOP goals as pt reports less compulsions while at IOP, but pt continues to report severe compulsions at home and constant obsessions or germ tracking throughout the day. Pt would benefit from increasing the frequency of individual sessions and will begin meeting with therapist twice a week starting next week. Pt also encouraged to meet with Dr. Casey next week to discuss getting starting on a medication to help with pt's OCD symptoms. Pt will continue IOP tx to prevent decompensation, improve daily functioning, and reduce compulsions. Time Stopped:: 13:10
--- NOTE | 2023-07-26 11:15 | BH.SGPN.GN ---
Behaviors/Verbalizations/Mental Status: [] Eye contact is good. Motor activity is within normal limits. Appearance is casual. Speech is Appropriate. Mood is content. Affect is congruent. Thoughts are linear and logical. No evidence of psychosis. Client Response/Progress/Benefit: [] Pt was an active participant during group discussions and activity. Pt was placed in a smaller group and participated in quiz-show format in which small groups competed against each-other to answer questions based on identifying, challenging, and reframing cognitive distortions. Pt was engaged in the smaller group, participated in group interactions to brainstorm answers, and appeared to be comprehending cognitive distortions. Stated learning that ?cognitive distortions are more complex that I realized?. Benefited from gaining further insight and awareness of cognitive distortions as well as practicing ways to reframe and challenge thoughts. Will continue in IOP to promote use of anxiety management skills, stabilize mood, and improve ability to function. Narrative Note: []
== END 2023-06-25 23:59 ==
LOC: BHIOP 08:00
PROVIDERS: PCP Nurse Practitioner Family; Referring Provider Psychiatry & Neurology Psychiatry; Visit Provider Psychiatry & Neurology Psychiatry
DX: F60.5 Obsessive-compulsive personality disorder (principal); F33.2 Major depressive disorder, recurrent severe without psychotic features; F41.1 Generalized anxiety disorder; F41.0 Panic disorder [episodic paroxysmal anxiety]; Z79.899 Other long term (current) drug therapy
CPT/HCPCS: 90792; H2012; H2020; S9480; T1002; 90832; 90834; 90837

== ENCOUNTER 2023-06-27 07:30 | Outpatient (RCR) | payer MEDICAID, SELFPAY ==
[2023-06-26 00:27] VITALS: BP 124/78; PULSE 70
--- NOTE | 2023-06-27 09:02 | BH.SGPN.GN ---
Behaviors/Verbalizations/Mental Status: [] Pt alert and oriented, neat and casually dressed and groomed. Eye contact good. Motor activity appropriate. Speech within normal limits. Affect congruent, mood dysthymic and anxious. Thoughts linear, logical, no signs of hallucinations or delusions. Reviewed pt?s symptom tracker, no risk for suicidal ideation, plan, or intent 06/27/23 Client Response/Progress/Benefit: []Pt responded well to session, participating in processing with group and providing supportive feedback throughout. Pt reports feeling mediocre this morning. Pt discussed working in individual therapy on stepping outside her ?comfort zone? and working on small exposure goals. Pt reports successfully completing one of these goals over the weekend ?without dying? or having a panic attack. Identified this as major progress and reports finding this encouraging. Additional win noted as challenging herself to express her emotions regarding a conflict between her parents that pt felt caught in the middle of. Described this going well and pt feeling her concerns were heard and addressed. Identified a current stressor as recently joining a musical but is having some intrusive thoughts about being exposed to germs in this setting. Pt did well to challenge her anxious thoughts and was receptive of support from fellow participants. Pt appeared to benefit from practicing a self-reflection technique and from group support. Pt will continue IOP tx to promote mood stability, increase distress tolerance skills, and improve daily functioning. Narrative Note: []
--- NOTE | 2023-06-27 10:10 | BH.SGPN.GN ---
Behaviors/Verbalizations/Mental Status: []Pt alert and oriented, casually dressed and groomed. Eye contact good. Motor activity appropriate. Speech within normal limits. Affect congruent, mood euthymic and anxious. Thoughts linear, logical, no signs of hallucinations or delusions. Client Response/Progress/Benefit: []Pt was an active participant in activity and taking notes during group discussion. Attentive during psychoeducation on coping skills, why people use unhealthy coping skills, and how to replace unhealthy coping skills. Group came up with list of negative coping skills including not asking for help, avoidance, isolating, and sleeping. Group discussed the effects of how negative coping skills can impact mental health in a negative way. Benefited from increased understanding of unhealthy coping skills and the need for developing healthy internal and external coping skills. Pt will continue IOP tx to decrease anxious avoidance, continue use of healthy coping skills, and prevent decompensation.
--- NOTE | 2023-06-27 11:10 | BH.SGPN.GN ---
Behaviors/Verbalizations/Mental Status: []Pt alert and oriented, casually dressed and groomed. Eye contact good. Motor activity appropriate. Speech within normal limits. Affect congruent, mood anxious. Thoughts linear, logical, no signs of hallucinations or delusions Client Response/Progress/Benefit: []Pt responded well to session, taking notes and contributing. Group discussed the different categories of coping skills which included distraction, emotional release, grounding, self-love, and thought challenging.? Pt participated in creating a coping skills ?menu? from the five categories of coping skills. Pt's coping skill menu included: youtube videos, exercise, belly breathing, wins journal, and opposite action. Appeared to benefit from increasing repertoire of healthy coping skills. Will continue IOP tx to continue working on decreasing avoidance, promote use of healthy skills, and prevnet decompensation.
--- NOTE | 2023-06-27 14:38 | BH.MDN ---
Multi-Disciplinary Note Note 45-min Individual: Time Started:: 12:30 Date: 06/27/23 Purpose of session/treatment goals addressed:: To process current stressors, triggers, and medication concerns. Another goal was to review ERP goals and set new ones. Eye Contact:: Good Motor Activity:: Restless Appearance:: Casual Speech:: Rambling and Rapid Mood:: Anxious and Depressed Affect:: Congruent (tearful) Thoughts:: Racing, Circular and No evidence of hallucinations/delusions noted Staff Interventions:: motivational interviewing (about medication hesitancy ), CBT techniques, mindfulness skills (practiced PMR during session), strengths perspective, goal setting (Set ERP goals for the week.) and other (discussed medication concerns and pt was encouraged to talk with her PCP about the medication recommendations given by Dr. Casey) Client Response:: Pt responded well to session, open to meeting with therapist. Pt reports feeling anxious and a little discouraged today. Pt shared she completed her ERP goal for the weekend, but pt admitted that she waited until the day before group to complete it because she was so anxious. Pt often becomes self-critical while talking about her OCD symptoms and pt reported connecting with feeling shame due to the symptoms. Pt responded well to gentle thought challenge and self-compassion by therapist. Pt can see logically that she cannot will this away but it is hard for pt to set realistic goals and recognize that likely will need the support of a medication. Pt is more accepting of medication today and will call to schedule an appointment. Pt also plans to have a family session with her mom next week. Pt did well practicing progressive muscle relaxation and reported it helped her in session. Pt shared she got some self-help OCD books and pt is hopeful that these will give her a different perspective and encouragement. Pt receptive to goal of practicing self-compassion while reading. Pt also receptive to practicing more exposure while at IOP through a contamination object. Pt will touch one object (a pillow) in therapist's office each day pt is at [facility] tx prior to going into first group. Pt will work her way up to touching the pillow and then rubbing her hands on her legs. Pt will also continue with the coffee and IOP binder goals. Risks/Concerns:: Pt denies any suicidal ideations, plan, or intent as of 06/27/23. Progress Toward Goals/Plan:: Pt progress limited as pt's compulsions continue to consume most of pt's day and pt reports that avoidance is huge for me. Pt did complete her ERP goal of using the coffee pot this weekend and bringing in her binder, but pt admitted I waited until the day before group. Pt is still in the contemplation/preparation stage of taking medication to help with pt's OCD. Pt is willing to schedule an appointment with her PCP to discuss medications further as pt has been avoiding researching medications for three weeks. Pt will continue IOP tx to prevent decompensation, reduce avoidance, and continue to explore medication options. Pt will meet with therapist again on 06/30/23. Time Stopped:: 13:15
--- NOTE | 2023-06-29 09:05 | BH.SGPN.GN ---
Behaviors/Verbalizations/Mental Status: [] Eye contact is good. Motor activity is appropriate. Appearance is casual. Speech is Appropriate. Mood is anxious. Affect is congruent. Thoughts are linear and logical. No evidence of psychosis. Reviewed daily check in sheet and no reports of suicidal ideations or intent. Client Response/Progress/Benefit: [] Pt was an active participant in group discussion. Attentive. Daily symptom tracker notes 2/5 for anxiety and 1/5 for depression. Emotion for today is tired . Mental health win was that she attended her first musical practice yesterday. Notes that her anxiety was high especially related to intrusive contamination thoughts as she was around 17 strangers. She made it through the practice. She did not elaborate much however noted increase anxiety, fear, and intrusive thoughts last evening. She also discussed communication issues with her mother, who is her primary support. She continues to work on exposure/fear ladder as well as managing intrusive thoughts. Progress noted. Benefited from group support, encouragement, and feedback. Will continue in IOP to prevent decompensation, stabilize mood, decrease intrusive thoughts, and improve functioning. Narrative Note: []
--- NOTE | 2023-06-29 10:15 | BH.SGPN.GN ---
Behaviors/Verbalizations/Mental Status: []Pt alert and oriented, casually dressed and groomed. Eye contact good. Motor activity appropriate. Speech within normal limits. Affect congruent, mood anxious and dysthymic. Thoughts linear, logical, no signs of hallucinations or delusions. Client Response/Progress/Benefit: []Pt an active participant throughout. Participated during interactive discussion on defining conflict (internal/external) and possible benefits to conflict. Attentive during psychoeducation on conflict styles and engaged during small group activity in which peers identified the benefits and consequences to each conflict style. Pt identified their primary conflict style as avoiding and shared that long-term this actually increases her anxiety as stressors tend to pile up . Shared avoiding keeps him from getting needs met. Benefited from increased awareness of the impact of conflict styles in mental health. Will continue in IOP to reinforce healthy coping skills, reduce safety behaviors, and improve mood stability. Narrative Note: []
--- NOTE | 2023-06-29 11:15 | BH.SGPN.GN ---
Behaviors/Verbalizations/Mental Status: []Pt alert and oriented, neatly dressed and groomed. Eye contact good. Motor activity appropriate. Speech within normal limits. Affect congruent, mood anxious. Thoughts linear, logical, no signs of hallucinations or delusions. Client Response/Progress/Benefit: []Pt was an active participant in group discussions and activity. Attentive during psychoeducation. Along with peers was able to reflect on what conflict resolution skills can be useful outside of IOP. Pt chose to continue to work on the conflict resolution skill of attempting to come to a compromise and understanding when in a conflict. Benefited from practicing and learning conflict resolution skills. Will continue in IOP to prevent decompensation, improve daily functioning, and increase self-compassion. Narrative Note: []
--- NOTE | 2023-06-29 15:07 | BH.MTP_ITS ---
Treatment Plan Review Demographics Date of Admission:: 06/06/23 Date of Treatment Plan Review:: 06/29/23 Admitting Diagnoses:: OCD F 44; PTSD; Major Depressive Disorder, recurrent, severe, without psychosis, Generalized anxiety disorder Current Diagnoses:: OCD F 42; PTSD; Major Depressive Disorder, recurrent, severe, without psychosis, Generalized anxiety disorder; Panic Disorder Patient Status Patient's Response to Treatment:: Pt has responded well to treatment AEB pt consistently attending IOP sessions. Pt contributes well during individual sessions and she is engaged during group sessions. Pt applies coping skills outside of IOP, but pt's symptoms are not resolving. Status of Current Problems and Symptoms: Pt's symptoms have not decreased since admission and her OCD continues to severely impact her functioning. Pt still engaging in handwashing 100 times a day, avoiding certain objects in her home, and having panic attack about exposure to germs. Pt is demonstrating progress with working on her fear ladder which will help with exposure. However, without medication to help with pt's obsessions and anxiety, there is a concern pt's progress will be limited to mild while in IOP. Progress Problem #1: Problem Name:: Obsessions, compulsions, and overall severe anxiety. Status of Goals:: Objective 1- not complete. Pt?s DSM-5 symptoms for anxiety and OCD have not decreased since admission and continue to impact pt?s overall functioning daily. Pt is working on her Fear ladder, but pt is unable to manage her obsessive, intrusive thoughts. Objective 2- in progress. Pt is actively working on exposure goals both at IOP and at home. Pt is still avoiding a lot, but pt is getting better with facing her fears. Team Recommendations:: Dr. Casey recommended on 06/14/23 that pt begin an SSRI to help with pt?s OCD symptoms and anxiety so that pt can begin to utilize healthy coping skills. Pt has not started any medications yet and is still in the contemplation stage of taking medications. Pt also encouraged to c ontinue working on her fear ladder goals. Problem #2: Problem Name:: Depression, anhedonia, thoughts of , and loss of motivation. Status of Goals:: Objective 1- not complete. Pt?s DSM-5 symptoms for depression have not decreased since admission, but they have also not worsened. Pt reports less thoughts of since admission which is progress. Objective 2- in progress. Every individual session pt practices catching negative automatic thoughts of self and pt works on using self-compassion. Pt struggles w ith shame from her OCD symptoms, so pt will benefit from continuing to work on this. Team Recommendations:: Tx team recommends that pt continue working on th carol goals as pt can benefit from identifying and reframing distortions and utilizing healthy coping skills. Pt also recommended to continue going to amish and play practice to increase socialization and connection.
--- NOTE | 2023-06-30 09:01 | BH.SGPN.GN ---
Behaviors/Verbalizations/Mental Status: [] Pt alert and oriented, Casually dressed and groomed. Eye contact good. Motor activity appropriate. Speech within normal limits. Affect congruent, mood anxious. Thoughts linear, logical, no signs of hallucinations or delusions. Reviewed pt?s symptom tracker, no risk for suicidal ideation, plan, or intent. Client Response/Progress/Benefit: []Client responded well to session as evidenced by listening attentively to others and sharing with others. Per symptom tracker client reported a 1/5, with 5 being severe, for depressed mood and a 3/5 for anxiety. Client stated mental health win as getting to IOP this morning. Reported additional mental health win as completing task for unemployment that she has been putting off for awhile. Client stated stressor is doing the uncomfortable thing while in treatment. Shared therapy can be so difficult because she is facing uncomfortable feelings, but recognizes facing this stressor is important. Seemed to benefit from support from peers. Client to continue IOP to continue working on exposing self to anxiety provoking situations, continue use of healthy coping skills, and prevent decompensation.
--- NOTE | 2023-06-30 10:10 | BH.SGPN.GN ---
Behaviors/Verbalizations/Mental Status: [] Client alert and oriented, casually dressed and groomed. Eye contact good. Motor activity appropriate. Speech within normal limits. Affect congruent, mood anxious. Thoughts linear, logical, no signs of hallucinations or delusions. Client Response/Progress/Benefit: [] Client was an active participant, AEB taking notes and providing input in group discussions and activities. Attentive during psychoeducation. Client engaged during interactive discussion in which the group defined self-care and discussed its benefits. Group discussed barriers to engaging in self-care as well as benefits which included; decreased irritability, decreased stress/anxiety, improved physical health, increased productivity, etc. Client participated in small group where they worked to identify common self-care ?myths? (self-care is selfish, self-care is self-indulgent, self-care is just personal hygiene, self-care should be fun, self-care is too time consuming, I don?t deserve it, self-care means I?m not being productive).Benefited from increased awareness of self-care, its benefits, and the consequences of not utilizing self-care strategies. Will continue IOP tx to prevent decompensation, decrease intrusive thoughts, increase healthy copign strategies, and improve functioning to return to work. Narrative Note: []
--- NOTE | 2023-06-30 11:10 | BH.SGPN.GN ---
Behaviors/Verbalizations/Mental Status: []Pt alert and oriented, neatly dressed and groomed. Eye contact good. Motor activity appropriate. Speech within normal limits. Affect congruent, mood anxious. Thoughts linear, logical, no signs of hallucinations or delusions. Client Response/Progress/Benefit: [] Client engaged participant AEB completing self-assessment worksheet and providing input throughout discussion. Client completed worksheet identifying current self-care practices and what self-care activities client wants to start using. Client selected physical and emotional self-care to begin practicing more consistently. Client plans to do this by having a more routine sleep/wake schedule and getting back to playing the violin. Appeared to benefit from completing the self-care evaluation and gaining insights into current self-care practices, as well as identifying areas in which client would like to improve upon. Client will continue IOP tx to prevent decompensation, improve daily functioning, and reduce compulsions. Narrative Note: []
--- NOTE | 2023-06-30 15:05 | BH.MDN ---
Multi-Disciplinary Note Note 30-min Individual: Time Started:: 12:10 Date: 06/30/23 Purpose of session/treatment goals addressed:: To work on goal #1 of pt's tx plan. Another goal was to discuss pt's upcoming family session Eye Contact:: Good Motor Activity:: Appropriate Appearance:: Casual Speech:: Rapid Mood:: Anxious Affect:: Congruent Thoughts:: Racing and No evidence of hallucinations/delusions noted Staff Interventions:: CBT techniques, mindfulness skills, strengths perspective, reviewed DSM-5, goal setting (set goals for the weekend. ) and other (engaged in one of pt's exposure goals during session (touching a pillow) ) Client Response:: Pt responded well to session, open to meeting with therapist. Pt has been working on practicing the ERP technique of the contamination towel which is a technique used to increase distress tolerance and reduce compulsions. Each day pt is at [facility] she has to touch a pillow in therapist's office prior to process group and during session. Pt stated she was able to make it through the discomfort and anxiety this morning, but it was hard. Pt shared that in some ways exposure therapy is working because pt is feeling less anxious now when she uses her coffee pot at home. Pt stated prior to engaging in ERP her anxiety about the coffee pot was a 10/10 and now it is a 5/10. Pt has also been able to bring in her IOP binder and is ready to flip through the pages at home. Pt has a goal for the weekend to continue making coffee each day, flip through her binder, and only use one pump of soap each time she washes her hands. Pt shared she bought two self-help books about OCD and one is a story of a women who overcome OCD. Pt is hopeful about these books and pt engaged to practice self-compassion and positive self-talk while reading them. Pt has a family session on Monday with her mother and pt would like to talk about reassurance seeking and how her mother can help reduce this. Risks/Concerns:: No report of thoughts of or suicidal ideations. Progress Toward Goals/Plan:: Progress is mild as pt's DSM-5 symptoms have not decreased since admission and her anxiety and OCD symptoms continue to be severe. Pt has made progress with accepting she will need medication in order to reduce the intensity of her intrusive and racing thoughts. Pt also has been making progress with working on her exposure goals both at home and while at IOP. Pt's symptoms and functioning has mildly changed since admission. Pt will continue IOP tx to prevent decompensation, reduce compulsions, and improve daily functioning. Pt has an appointment with her PCP next week for medication management. Time Stopped:: 12:45
--- NOTE | 2023-07-03 09:05 | BH.SGPN.GN ---
Behaviors/Verbalizations/Mental Status: [] Pt alert and oriented, casually dressed and groomed. Eye contact good. Motor activity appropriate. Speech within normal limits. Affect congruent, mood content, anxious. Thoughts linear, logical, no signs of hallucinations or delusions. Reviewed pt?s symptom tracker, no risk for suicidal ideation, plan, or intent 07/03/23 Client Response/Progress/Benefit: []Pt responded well to session, participating in processing and providing supportive feedback. Pt reports feeling anxious this morning as she had to drop her car off today to be fixed and is driving a rental. Explained that taking her car in was a win; however, this is out of her comfort zone as she is used to her own vehicle and a specific schedule, resulting in pt feeling a little thrown off today. Shared needing to practice being in the present to help reduce anxiety and focus on group for the remainder of the day. Additionally, identified beginning a new book over the weekend on someone else's lived experience with OCD, which pt has found to be beneficial. Pt appeared to benefit from self-reflection on areas of progress, as well as from group support. Pt will continue IOP tx to promote mood stability, increase distress tolerance and small exposure skills, and improve daily functioning. Narrative Note: []
--- NOTE | 2023-07-03 10:20 | BH.SGPN.GN ---
Behaviors/Verbalizations/Mental Status: []Pt alert and oriented, neatly dressed and groomed. Eye contact good. Motor activity appropriate. Speech within normal limits. Affect congruent, mood anxious. Thoughts linear, logical, no signs of hallucinations or delusions. Client Response/Progress/Benefit: [] Pt was engaged and open to the discussion and appeared to respond well to the group. Pt used active listening and gave feedback during group discussion. Pt stated belief that when she started IOP she was nervous, but pt discovered that the program was welcoming. Pt reports that being positive about treatment keeps pt coming back. Pt appeared to benefit from increasing awareness of different perspectives and how they can affect mental health. Pt will continue IOP treatment to improve daily functioning, prevent decompensation, and reduce avoidance behaviors. Narrative Note: []
--- NOTE | 2023-07-03 11:10 | BH.SGPN.GN ---
Behaviors/Verbalizations/Mental Status: []Pt alert and oriented, casually dressed and groomed. Eye contact good. Motor activity appropriate. Speech within normal limits. Affect congruent, mood euthymic. Thoughts linear, logical, no signs of hallucinations or delusions. Client Response/Progress/Benefit: []Pt was attentive and contributed to group discussion. Pt worked with group to identify strategies that can help with challenging negative perspective. Pt completed strengths exploration worksheet, identifying empathy, honesty, kindness, forgiveness, and humor as personal strengths. Pt able to acknowledge how these strengths are helping pt and can continue to help pt in mental health journey. Pt identified wanting to work on getting back to her strength of spirituality by reading/praying daily. Benefited from identifying personal strengths and strategies for enhancing use of identified strengths. Pt will continue IOP tx to continue working on exposure therapy, decrease safety behaviors, and prevent decompensation.
--- NOTE | 2023-07-03 13:42 | BH.MDN_ITS ---
Multi-Disciplinary Note Note Family: Time Started:: 12:10 Date: 07/03/23 Purpose of session/treatment goals addressed:: To bring in pt's support person (mother) into pt's tx to promote growth and address any barriers. Eye Contact:: Good Motor Activity:: Appropriate Appearance:: Casual Speech:: Appropriate Mood:: Anxious and Depressed Affect:: Congruent (tearful) Thoughts:: Racing and No evidence of hallucinations/delusions noted Staff Interventions:: psychoeducation on: (OCD and ERP), CBT techniques, discharge planning and strengths perspective Client Response:: Pt responded well to session, open to meeting with therapist. Pt's mother present for session and she reported she is here hoping to support pt and learn more. Pt started session by reviewing the progress she has made recently with exposure. Pt shared making coffee used to be a 10/10 for anxiety, but now that pt is doing it daily, pt feels it is a 5/10. Pt also has been consistently taking her IOP binder inside and not cleaning it more than once. Pt shared she has been washing her hands less at IOP and pt is working on only using one pump of soap when she washes her hands. Pt became tearful and while touching the contamination object and pt stated she often feels dumb for struggling like this. Pt's mother was supportive and pt appeared to benefit from compassion and validation. Pt and therapist provided mother with psychoeducation on OCD, specially the compulsions and safety behaviors. Pt able to identify certain safety behaviors she engages in that reinforce her OCD. Pt also able to give insight to her mother on things she does that might reinforce OCD. One suggestion given was to use escamilla mind verbiage when mother gives pt support. It was discovered that there are times when her mother gives pt false comfort which makes pt, unknowingly, stay stuck. Also discussed ways pt can continue to sit with the uncomfortable and this includes listening to mother's escamilla mind verbiage and not asking further reassurance seeking questions. Pt will continue with her exposure goals this week and pt will follow up with her PCP on . Risks/Concerns:: No report of thoughts of or SI. Progress Toward Goals/Plan:: Pt continues to make progress in some areas, but overall her symptoms have not decreased since admission. Pt continues to report avoidance, engaging in compulsions more than an hour a day, constant intrusive thoughts, and negative self-talk. Pt is making progress with following through with her exposure goals as noted above. [facility] to get put on a medication to help with her OCD symptoms. Pt will also continue seeing therapist twice a week to continue working on exposure in session. Pt will continue IOP tx to prevent decompensation, improve daily functioning, and reduce avoidance. Time Stopped:: 12:57
--- NOTE | 2023-07-05 09:05 | BH.SGPN.GN ---
Behaviors/Verbalizations/Mental Status: [] Eye contact is good. Motor activity is appropriate. Appearance is casual. Speech is Appropriate. Mood is anxious. Affect is congruent. Thoughts are linear and logical. No evidence of psychosis. Reviewed daily check in sheet and no reports of suicidal ideations or intent. Client Response/Progress/Benefit: [] Pt participated at times during the group discussion. Attentive. Daily symptom tracker notes 07/31 for anxiety and 06/30 for depression. Shared with the group that she had a family session with program therapist last week. Able to identify the benefits of this session. Practicing skills such as sitting with the uncomfortable Explained what this meant to peers and gave some examples. She also practicing self-care this weekend and shared how this was beneficial for her anxiety. It's OK to take some downtime . Appears she was able to rest and not feel guilty. Progress noted. Benefited from group support, encouragement, and feedback. Will continue in IOP to prevent decompensation, stablize mood, decrease intrusive thoughts, and to improve functioning Narrative Note: []
--- NOTE | 2023-07-05 10:10 | BH.SGPN.GN ---
Behaviors/Verbalizations/Mental Status: [] Client alert and oriented, casually dressed and groomed. Eye contact good. Motor activity appropriate. Speech within normal limits. Affect congruent, mood euthymic and anxious. Thoughts linear, logical, no signs of hallucinations or delusions. Client Response/Progress/Benefit: [] Client responded well to session AEB sharing and listening attentively to others. Group provided examples of benefits of having social support, including: feeling like you matter, security, and motivation. Client also participated in group discussion regarding the barriers to accessing support including: not reaching out, lack of communication, and over using certain supports. Client shared personal example of pride preventing her from utilizing supports. Client participated in experiential activity illustrating the impact communication, boundaries, and patience play in creating healthy support systems. Client appeared to benefit from increased knowledge of the benefits of social support and greater self-awareness. Will continue IOP tx to prevent decompensation, increasing supports, and improve overall functioning. Narrative Note: []
--- NOTE | 2023-07-05 11:10 | BH.SGPN.GN ---
Behaviors/Verbalizations/Mental Status: [] Client alert and oriented, casually dressed and groomed. Eye contact good. Motor activity appropriate. Speech within normal limits. Affect congruent, mood euthymic and anxious. Thoughts linear, logical, no signs of hallucinations or delusions. Client Response/Progress/Benefit: [] Client was an active participant throughout AEB contributing to discussion, providing personal examples, and taking notes. Client processed emotions felt in the activity and how they coped in the moment. Client provided input during discussion on the types of support our supports can provide. Client able to identify current support system and barriers that get in the way of using supports by drawing out their own support net. Client reported after identifying what type of supports they receive; they gained awareness that they could benefit from more social supports. Client identified steps to achieve this by texting friend more often, calling a friend, and then when willing get out with friends in person. Client shared increasing this support will help them by not feeling as lonely. Client seemed to benefit from identifying the type of support client needs to work on improving. Client recommended to continue IOP tx to prevent decompensation, challenge thinking patters, and reduce isolation. Narrative Note: []
--- NOTE | 2023-07-07 09:05 | BH.SGPN.GN ---
Behaviors/Verbalizations/Mental Status: [Patient was alert and oriented, appropriately dressed and groomed. Eye contact was good, motor activity normal, speech within normal limits. Affect congruent, mood content. Thoughts linear, logical, no signs of hallucinations or delusions. Reviewed Patients symptom tracker and the patient reports low/moderate in anxiety/panic attacks, low in depressed mood, and reports no symptoms in agitation/irritability/anger, self-harm urges, or thoughts/risk of suicide.] Client Response/Progress/Benefit: [Patient was engaged and open to the discussion. Patient reported her mood to be ?Grateful?. Patients first win is that she has started a new medication after being encouraged in her individual. She stated that her therapist told her to think of life as a battlefield but its pitch black, but medication can sometimes be a flashlight to help you get through. Patients second win and her stressor was that she has been practicing with sitting in the uncomfortable. Patient was interactive and respectful with other group members about their mental wins and stressors. Patient benefited from the discussion by listening to feedback and giving input on her peer?s stressors and mental health wins. Patient will continue with IOP treatment to help develop healthy skills, promote mood stability, and improve distress tolerance. ] Narrative Note: []
--- NOTE | 2023-07-07 09:44 | BH.COMM ---
Communication Note Communication with Client Communication Note: Pt was scheduled to have an individual session with therapist today, but pt had to cancel individual session due to having a car appointment after group today.
--- NOTE | 2023-07-07 10:10 | BH.SGPN.GN ---
Behaviors/Verbalizations/Mental Status: [] Eye contact is good. Motor activity is appropriate. Appearance is casual. Speech is Appropriate. Mood is anxious. Affect is congruent. Thoughts are linear and logical. No evidence of psychosis. Client Response/Progress/Benefit: [] Patient was an active participant in group discussions. Attentive during psychoeducation on growth mindset. Participated during the activity. Interactive group discussion on growth mindset in which group verbalized their current fixed mindsets and how they affect their mental health. Patient shared common fixed mindset thoughts they have which included I'm not sure I can overcome my OCD; I have to work harder than others to accomplish my goals?. These thoughts leads to pt feel discouraged . Patient benefited from increased awareness of growth mindset and fixed thoughts and how fixed thoughts impact their mental health. Will continue in IOP to prevent decompensation, decrease intrusive thoughts, and improve functioning. Narrative Note: []
--- NOTE | 2023-07-07 11:15 | BH.SGPN.GN ---
Behaviors/Verbalizations/Mental Status: []Pt alert and oriented, casually dressed and groomed. Eye contact good. Motor activity appropriate. Speech within normal limits. Affect congruent, mood anxious and content. Thoughts linear, logical, no signs of hallucinations or delusions. Client Response/Progress/Benefit: [] Pt was an active participant during activity and discussion AEB providing some input when prompted, connecting with peers, as well as taking notes throughout. Pt did well to remain attentive and participate as group worked on identifying characteristics and benefits of adopting a growth mindset. Worked with fellow participants in reframing the example fixed thoughts into growth mindset thoughts. Pt worked on changing own fixed thought of I always have to work harder than other people to accomplish my goals to a more growth mindset thought of Even if I have to work harder than others at times, I am worth putting in the extra effort and it can get easier over time . Receptive of discussing benefits of growth mindset and brainstorming strategies for prompting growth-mindset. Pt appeared to benefit from working in small groups to challenge own thoughts and help peers. Pt will continue IOP tx to improve mood stability, reduce safety behavior patterns, and improve daily functioning. Narrative Note: []
--- NOTE | 2023-07-10 09:05 | BH.SGPN.GN ---
Behaviors/Verbalizations/Mental Status: [Patient was alert and oriented, appropriately dressed and groomed. Eye contact was good, motor activity normal, speech within normal limits. Affect congruent, mood content. Thoughts linear, logical, no signs of hallucinations or delusions. Reviewed Patients symptom tracker and the patient reports low/moderate in anxiety/panic attacks, low in depressed mood, and reports no symptoms in agitation/irritability/anger, self-harm urges, or thoughts/risk of suicide.] Client Response/Progress/Benefit: [Patient was engaged and open to the discussion. Patient reported her mood to be ?Apprehensive?. Patients first win was that this weekend she had made a list of all the things she needed to get done around the house and almost accomplished all of them. She stated that some of those things were ?little to most people? but made the difference for her. The group discussed giving yourself credit for things that are hard for you regardless of what it is. Patients second win was that her and her mom bonded over a book they have been reading about anxiety and that it was a good day. The patients stressor is that her check engine light has now came on and she doesn?t know what to do about it. Patient was interactive and respectful with other group members about their mental wins and stressors. Patient benefited from the discussion by listening to feedback and giving input on her peer?s stressors and mental health wins. Patient will continue with IOP treatment to help develop healthy skills, promote mood stability, and improve distress tolerance. ] Narrative Note: []
--- NOTE | 2023-07-10 10:10 | BH.SGPN.GN ---
Behaviors/Verbalizations/Mental Status: [] Eye contact is good. Motor activity is appropriate. Appearance is casual. Speech is Appropriate. Mood is euthymic. Affect is congruent. Thoughts are linear and logical. No evidence of psychosis. Client Response/Progress/Benefit: [] Pt was an active participant in group discussions. Attentive during psychoeducation AEB by note taking and providing some input. Pt worked along with peers in small groups to define guilt, inappropriate guilt, and appropriate guilt. Interactive discussion on examples of both inappropriate and appropriate guilt. Pt identified a personal example of inappropriate guilt not accomplishing enough at home due to her OCD, even thought she did accomplish some things and how this impacted their mental health. Benefited from increased awareness of guilt and the differences between appropriate and inappropriate guilt. Will continue in IOP to continue working on decreasing anxious avoidance, promote use of healthy coping skills, and prevent decompensation.
--- NOTE | 2023-07-10 11:10 | BH.SGPN.GN ---
Behaviors/Verbalizations/Mental Status: []Pt alert and oriented, neatly dressed and groomed. Eye contact good. Motor activity appropriate. Speech within normal limits. Affect congruent-wearing a mask, mood euthymic and anxious. Thoughts linear, logical, no signs of hallucinations or delusions. Client Response/Progress/Benefit: [] Pt engaged participant AEB listening attentively to others and providing input throughout group. Pt worked with their small group to identify strategies to manage inappropriate guilt. Pt stated pt often feels inappropriate guilt when pt does not accomplish all the tasks she says she will accomplish. Or when pt avoids things because of her OCD. Pt wants to work on combatting inappropriate guilt by reframing her all or nothing thinking and focusing on what she has made progress towards. Pt seemed to benefit from learning about strategies to manage appropriate and inappropriate guilt. Pt will continue IOP tx to reduce OCD symptoms, improve daily functioning, and increase distress tolerance skills. Narrative Note: []
--- NOTE | 2023-07-10 13:50 | BH.MDN_ITS ---
Multi-Disciplinary Note Note 45-min Individual: Time Started:: 12:10 Date: 07/10/23 Purpose of session/treatment goals addressed:: To work on goal #2 of pt's tx plan and to discuss medication. Eye Contact:: Good Motor Activity:: Appropriate Appearance:: Casual Speech:: Rambling and Rapid Mood:: Anxious Affect:: Congruent Thoughts:: Racing and Circular Staff Interventions:: thought challenging, CBT techniques, discharge planning, strengths perspective, goal setting and other (worked on pt's exposure goal in session and set new goals for the week. ) Client Response:: Pt responded well to session, open to meeting with therapist. Pt shared she accomplished a lot of her goals over the weekend including putting away laundry that she had been avoiding due to fear of contamination, sitting on her couch, and using her winemaker. Pt reports using the winemaker no longer produces anxiety. Pt shared her mother came over last week and encouraged pt while pt faced her anxiety head on and pt did some house work she had been avoiding. Pt shared she is currently feeling anxious and sad about how her anxiety and OCD will impact pt's ability to form relationships. Pt stated there is a boy who is in pt's bible study and pt is interested in spending time with him. Pt feels worried that someone will not accept her and pt stated she feels some shame attached to getting mental health help, but pt is trying to combat this. Pt reports that her mom has also been helping her combat this and encouraged pt to be vulnerable. Pt shared about her most recent relationship and how her identity and thoughts of self were impacted by the way things ended. This led to pt talking about the estranged relationship pt has with her brother. Pt hopes that some day their relationship can become close again, but pt is trying to accept that for now, this is out of pt's control. Pt responded well to acceptance discussion as well as challenging negative thinking patterns. Pt set goals for the week which included her ongoing goals, plus sitting on her couch every day and using one pump of soap. Risks/Concerns:: Pt denies any thoughts of or SI today. Progress Toward Goals/Plan:: Pt making progress towards her tx goals AEB pt's self report of continuing to work on exposure goals both at home and at IOP. Pt reports making coffee is no longer anxiety provoking which it had been extremely anxiety producing two-three weeks ago. 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 Pt's daily functioning is still impaired by her OCD symptoms and pt is worried about her ability to form new relationships and work. Pt also reports ongoing germ tracking that is constant and impacts pt's ability to concentrate. Pt will continue IOP tx to promote mood stability, continue to increase distress tolerance skills, and improve daily functioning. Time Stopped:: 12:50
--- NOTE | 2023-07-11 09:10 | BH.SGPN.GN ---
Behaviors/Verbalizations/Mental Status: [] Pt alert and oriented, casually dressed, grooming appropriate. Eye contact good. Motor activity appropriate. Speech within normal limits. Affect congruent, mood content. Thoughts linear, logical, no signs of hallucinations or delusions. Reviewed pt?s symptom tracker, no risk for suicidal ideation, plan, or intent 07/11/23 Client Response/Progress/Benefit: []Pt responded well to session, participating in processing and providing supportive feedback. Pt reports feeling content this morning sharing that she was able to find a small moment of nicolle looking at the beauty of the snow falling and allowing herself to be present in that moment. Described that as a personal win as pt reports struggling with being present at times. Additional win reported as continuing to challenge herself to work on her mental health and do the anxious or uncomfortable thing . Pt appeared to benefit from self-reflection on areas of progress, as well as from group support. Pt will continue IOP tx to maintain mood stability, increase application of ERP skills, and improve daily functioning. Narrative Note: []
--- NOTE | 2023-07-11 10:10 | BH.SGPN.GN ---
Behaviors/Verbalizations/Mental Status: []Pt alert and oriented, casually dressed and fairly groomed. Eye contact good. Motor activity appropriate. Speech within normal limits. Affect constricted, mood euthymic. Thoughts linear, logical, no signs of hallucinations or delusions. Client Response/Progress/Benefit: [] Pt was an active participant in group discussions. Attentive during psychoeducation. Contributed during interactive discussions in which peers attempted to define crisis . Pt identified examples of potential crisis. Group also worked together to identify unhealthy responses to crisis which included; isolation, self-harm, substance abuse, avoidance, and distraction. Pt identified personal warning signs as not taking care of responsibilities, avoidance of anxious situations, and overuse of distractions. Benefited from increased understanding of crisis and awareness of personal responses to crisis. Pt will continue IOP tx to decrease anxious avoidance, increase use of healthy coping skills, and prevent decompensation.
--- NOTE | 2023-07-11 11:10 | BH.SGPN.GN ---
Behaviors/Verbalizations/Mental Status: [] Eye contact is good. Motor activity is appropriate. Appearance is casual. Speech is Appropriate. Mood is anxious. Affect is congruent. Thoughts are linear and logical. No evidence of psychosis. Client Response/Progress/Benefit: [] Pt was an active participant in group discussions. Attentive during psychoeducation. In small group pt along with peers developed an active plan for their crisis warning signs. Pt identified three crisis warning signs as well as an action plan for each. One crisis warning sign is not taking care of responsibilities with an action plan that involved: having an accountability partner, using a calendar for due dates, and setting 15 minute timer each day before bed to pest control supervisor around the house. Other warning sign was avoidance of anxious situations with an action plan that involved: opposite action, using calming/breathing techniques, and limiting time in car before goes into house to 15 to 20 minutes. Benefited from increased awareness of crisis warning signs and by developing crisis intervention strategies. Will continue in [facility] to continue working on decreasing anxious avoidance, build confidence, and prevent decompensation.
--- NOTE | 2023-07-12 09:05 | BH.SGPN.GN ---
Behaviors/Verbalizations/Mental Status: [Patient was alert and oriented, appropriately dressed and groomed. Eye contact was good, motor activity normal, speech within normal limits. Affect congruent, mood content. Thoughts linear, logical, no signs of hallucinations or delusions. Reviewed Patients symptom tracker and the patient reports low/moderate in anxiety/panic attacks, low in depressed mood, and reports no symptoms in agitation/irritability/anger, self-harm urges, or thoughts/risk of suicide.] Client Response/Progress/Benefit: [Patient was engaged and open to the discussion. Patient reported her mood to be ?content and grateful?. Patients first win was that she has been filling out job applications to places and sent in a big packet that she was trying to procrastinate. Patients second win was that she went to a bible study the night prior and started talking to a abdoulaye from there. Patients stressor is that although she knows its helpful, she is working on some tough things in her sessions that she does not like. Patient was interactive and respectful with other group members about their mental wins and stressors. Patient benefited from the discussion by listening to feedback and giving input on her peer?s stressors and mental health wins. Patient will continue with IOP treatment to help develop healthy skills, promote mood stability, and improve distress tolerance. ] Narrative Note: []
--- NOTE | 2023-07-12 11:15 | BH.SGPN.GN ---
Behaviors/Verbalizations/Mental Status: []Pt alert and oriented, casually dressed and groomed. Eye contact good. Motor activity appropriate. Speech within normal limits. Affect congruent, mood euthymic. Thoughts linear, logical, no signs of hallucinations or delusions. Client Response/Progress/Benefit: [] Pt responded well to session AEB taking notes and contributing to discussion throughout. Pt engaged as group continued discussion on acceptance and the mental health benefits of practicing acceptance. Pt and peers identified what makes acceptance challenging and pt completed a self-reflection exercise on what is hard to accept in pt's life. Pt identified struggling to accept needing medication for my situation due to stigma?. Group identified strategies to increase acceptance and pt shared wanting to focus on acknowledging the progress she is making and challenge negative self-talk. Pt appeared to benefit from gaining insight and learning strategies to increase acceptance. Pt will continue IOP tx to improve daily functioning, increase distress tolerance skills, and reduce avoidance. Narrative Note: []
--- NOTE | 2023-07-12 14:49 | BH.MDN_ITS ---
Multi-Disciplinary Note Note 45-min Individual: Time Started:: 12:25 Date: 07/12/23 Purpose of session/treatment goals addressed:: To continue working on exposure goals and practicing self-compassion. Another goal was to get pt connected with outpatient counseling. Eye Contact:: Good Motor Activity:: Appropriate Appearance:: Casual Speech:: Rapid (which is pt's baseline) Mood:: Anxious Affect:: Congruent Staff Interventions:: thought challenging, CBT techniques, mindfulness skills, strengths perspective, goal setting and other (discussed plan to begin weaning her zoloft as instructed by her PCP and merchandise pickup/receiving associate her new medication.) Client Response:: Pt responded well to session, open to meeting with therapist. Pt has been following through with her exposure goals, but she has not yet picked up her new medication. Pt stated she is anxious about getting it, but pt is also now out of the contemplation stage and ready to take a new medication. Pt plans to merchandise pickup/receiving associate her medication today and begin weaning off her zoloft this weekend. Pt was able to sit on her couch last night which was her exposure goal. Pt did this right before bed and plans to do this again tonight. Pt has been consistent with making coffee, touching the contamination object (a pillow) every day at [facility]. Pt is also getting better at catching her negative thinking patterns and pt demonstrated this during session. Pt is catching statements like this is so dumb and is being more compassionate to herself and her journey with overcoming OCD. Pt's stressor today is that she has a date this Monday. Pt is anxious about this date mostly because she is fearful of her germ tracking, being in close proximity to someone new, and fear of being judged. Pt has problem-solved some ways to make herself feel more confident on this date which included meeting her date, going to the religion to eat instead of a restaurant, and combating distortions. Pt feels that her date will be non- judgmental as he has struggled with adversity as well. 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 Pt reminded herself that she will continue to grow and get better, but she needs to focus on taking care of this version of herself. Risks/Concerns:: Pt denies any SI or thoughts of . Progress Toward Goals/Plan:: Pt continues to make progress towards her tx goals AEB pt's report of less depression, less avoidance, and increased ability to manage anxiety. Pt is consistent with her exposure goals and hopefully pt's OCD symptoms will decrease further once pt is properly medicated. Pt's symptoms continue to impact her overall functioning and ability to form new relationships. Pt will continue IOP tx to promote mood stability, increase distress tolerance, and improve daily functioning. Pt plans to call Mirian Wolfe today to get established with outpatient individual counseling. Time Stopped:: 13:00
--- NOTE | 2023-07-13 09:05 | BH.SGPN.GN ---
Behaviors/Verbalizations/Mental Status: [] Eye contact is good. Motor activity is appropriate. Appearance is casual. Speech is Appropriate. Mood is euthymic. Affect is full. Thoughts are linear and logical. No evidence of psychosis. Reviewed daily check in sheet and no reports of suicidal ideations or intent. Client Response/Progress/Benefit: [] Pt was an active participant in group discussion. Attentive. Daily symptom tracker notes 07/31 for anxiety and 06/30 for depression. Emotion for today is happy . She states I picked up my medication yesterday . Shared that she has been avoiding medications for her OCD due to stigma . Struggling to accept that she needs a medication to manage her thoughts and emotions, however reports that support from peers and therapist has helped with decreasing impact of stigma. I'm scared of the unknown or uncertainty regarding how the medications will impact her which ties into her health anxiety. Insight that while she has made progress with skills her functioning continues to be impacted by OCD and intrusive thoughts. Shared the coping strategies that she has been consistency using such as reframing, mindfulness, and acceptance. Benefited from group support, encouragement, and feedback. Will continue in IOP to prevent decompensation, decrease intrusive thoughts, and improve functioning. Narrative Note: []
--- NOTE | 2023-07-13 10:15 | BH.SGPN.GN ---
Behaviors/Verbalizations/Mental Status: []Client alert and oriented, casually dressed and groomed. Eye contact good. Motor activity appropriate. Speech within normal limits. Affect congruent, mood content and anxious. Thoughts linear, logical, no signs of hallucinations or delusions. Client Response/Progress/Benefit: []Pt engaged in session AEB listening attentively to others and providing insight to group discussion. Pt engaged in activity, able to connect how it can be uncomfortable and difficult to accept when things are out of one?s own control. Pt worked with group to identify what things in life can be hard to accept. Group identified things hard to accept as: , body image, loss of relationship, mental health diagnosis, other?s behaviors, and past decisions. Pt worked on identifying what personal things are hard to accept for themself, sharing needing medication for her OCD, being in IOP tx, and struggling with finances are some things pt struggles with accepting. Pt seemed to benefit from increased awareness of importance of acceptance. Pt to continue IOP to improve mood stability, increase application of self-compassion and grounding skills, and prevent decompensation. Narrative Note: []
--- NOTE | 2023-07-13 10:20 | BH.SGPN.GN ---
Behaviors/Verbalizations/Mental Status: []Pt alert and oriented, neatly dressed and groomed. Eye contact good. Motor activity appropriate. Speech within normal limits. Affect congruent, mood anxious. Thoughts linear, logical, no signs of hallucinations or delusions. Client Response/Progress/Benefit: [] Client connected with topic of Anxiety and participated throughout, providing input and taking notes. Participated throughout interactive discussion defining anxiety and identifying cognitive and physiological symptoms of anxiety. Group discussed how anxiety can prevent them from trying new things. Common physical and cognitive symptoms identified by group included: ?what if thoughts?, ?fear of failure?, negative self-talk, increased heart rate, restlessness, and getting sick more frequently. Client identified avoidance and excessive handwashing as their safety behavior. Benefited from increased awareness and insight on anxiety and its impact. Pt will continue IOP tx to promote mood stability, increase distress tolerance skills, and improve daily functioning. Narrative Note: []
--- NOTE | 2023-07-13 11:15 | BH.SGPN.GN ---
Behaviors/Verbalizations/Mental Status: []Pt alert and oriented, causal appearance. Eye contact good. Motor activity appropriate. Speech within normal limits. Affect congruent, mood anxious. Thoughts linear, logical, no signs of hallucinations or delusions. Client Response/Progress/Benefit: [] Pt was an active participant AEB pt providing input and listening attentively to peers. Attentive during psychoeducation on mindfulness coping skills and their impact on reducing anxiety and improving overall mental health wellness. Group was able to identify self-soothing and mind-based coping skills which included: 5-senses, meditation, deep breathing, journaling, and progressive muscle relaxation. Pt also participated with peers in practicing mindfulness skills in session. Pt would like to work on breathing exercises and progressive muscle relaxation. Appeared to benefit from increasing repertoire of anxiety reduction skills. Pt will continue in IOP tx to challenge anxious thoughts, increase healthy coping skills, and prevent decompensation.
--- NOTE | 2023-07-17 09:05 | BH.SGPN.GN ---
Behaviors/Verbalizations/Mental Status: [Patient was alert and oriented, appropriately dressed and groomed. Eye contact was good, motor activity normal, speech within normal limits. Affect congruent, mood content. Thoughts linear, logical, no signs of hallucinations or delusions. Reviewed Patients symptom tracker and the patient reports depressed mood, anxiety/panic attacks, agitation/irritability/anger, self-harm risk, and thoughts/risk of suicide within normal limits.] Client Response/Progress/Benefit: [Patient was engaged and open to the discussion. Patient reported her mood to be ?grateful?. Patients first win was that she started a new medication today. She stated her second win was that she got a lot of chores done over the weekend and bathed her cat. Patients stressor is that she is unemployed, and her rent is expensive. Patient was interactive and respectful with other group members about their mental wins and stressors. Patient benefited from the discussion by listening to feedback and giving input on her peer?s stressors and mental health wins. Patient will continue with IOP treatment to help develop healthy skills, promote mood stability, and improve distress tolerance. ] Narrative Note: []
--- NOTE | 2023-07-17 10:15 | BH.SGPN.GN ---
Behaviors/Verbalizations/Mental Status: []Eye contact is good. Motor activity is appropriate. Appearance is casual. Speech is Appropriate. Mood is anxious and engaged. Affect is congruent. Thoughts are linear and logical. No evidence of psychosis Client Response/Progress/Benefit: [] Pt was an active participant in group discussions AEB listening attentively to others and providing feedback at times. Participated in and was engaged during experiential activity. Able to relate activity to group topic of FOF. Engaged during interactive discussion on what failure means to the group in which peers identified and defined failure. Group was able to identify impact of fear of failure on mental health. Attentive during interactive discussion on the role that FOF plays in mental wellness, depression, anxiety, and growth. Pt reported fear of failure has kept pt from stepping out of her comfort zone and reinforces anxiety. Benefited from increased awareness of how the role that FOF plays in mental health and decision-making. Will continue in IOP to improve daily functioning, increase distress tolerance, and further reduce avoidance. Narrative Note: []
--- NOTE | 2023-07-17 11:15 | BH.SGPN.GN ---
Behaviors/Verbalizations/Mental Status: []Pt alert and oriented, casually dressed and groomed. Eye contact good. Motor activity appropriate. Speech within normal limits. Affect congruent, mood content. Thoughts linear, logical, no signs of hallucinations or delusions. Client Response/Progress/Benefit: [] Pt responded well to session, engaged in the experiential activity and attentive throughout group processing. Pt reported fear of failure has kept Pt from believing in herself and doing things on her own. Pt completed fear of failure worksheet and was able to identify thoughts and behaviors that reinforce personal fear of failure including self-doubt, past failures, and negative/distorted thought patterns. Pt participated in group discussion regarding strategies to overcome fear of failure. Identified wanting to work on practicing positive self-talk and opposite action. Appeared to benefit from increased knowledge of strategies to combat fear of failure and gaining self-awareness. Pt will continue IOP tx to improve mood stability, reduce reassurance seeking, and prevent decompensation. Narrative Note: []
--- NOTE | 2023-07-18 09:05 | BH.SGPN.GN ---
Behaviors/Verbalizations/Mental Status: [] Eye contact is good. Motor activity is appropriate. Appearance is casual. Speech is Appropriate. Mood is anxious. Affect is congruent. Thoughts are linear and logical. No evidence of psychosis. Reviewed daily check in sheet and no reports of suicidal ideations or intent. Client Response/Progress/Benefit: [] Pt was an active participant in group discussion. Attentive. Daily symptom tracker notes 07/31 for anxiety. Able to identify mental health wins which included practising opposite action this morning. States that she dressed up as she is wearing jeans and make-up. Shared how this is growth as well as how this benefited her mental health. She also continues to follow her prescriber's suggestion for titrating a medications and starting another for her OCD. Also shared stressors and mental health struggles however is optimistic stating I'm glad to be here . Progress noted per pt report. Benefited from group support, encouragment, and feedback. Will continue in IOP to prevent decompensation, decreased intrusive thoughts/compulsions, and improve functioning. Narrative Note: []
--- NOTE | 2023-07-18 10:15 | BH.SGPN.GN ---
Behaviors/Verbalizations/Mental Status: []Eye contact is good. Motor activity is appropriate. Appearance is casual. Speech is Appropriate. Mood is anxious and dysthymic. Affect is congruent. Thoughts are linear and logical. No evidence of psychosis. Client Response/Progress/Benefit: [] Pt was an active participant in group discussions. Attentive during psychoeducation on the communication styles and the obstacles to effective communication. Contributed during interactive discussion on the benefits of communicating effectively which included; having one's needs met, decreases stress and uncertainty, improves relationships, increases trust, and increases understanding of others. Worked well in small group in which pt and peers identified the benefits and disadvantages to the different communication styles. Benefited from increased understanding of communication styles and how these can impact effective communication. Pt reports identifying most with passive communication, reporting this leads to not getting her needs met and over engaging in people pleasing behaviors. Will continue in IOP to promote distress tolerance skills, reduce avoidance, and combat distorted thinking patterns. Narrative Note: []
--- NOTE | 2023-07-18 11:15 | BH.SGPN.GN ---
Behaviors/Verbalizations/Mental Status: []Pt alert and oriented, causally dressed and groomed. Eye contact good. Motor activity appropriate. Speech within normal limits. Affect congruent, mood euthymic, slightly anxious. Thoughts linear, logical, no signs of hallucinations or delusions. Client Response/Progress/Benefit: [] Pt responded well to session AEB Pt listening attentively to others and providing input during group discussion on the pay offs and costs of the different communication styles. Pt able to connect how current communication style impacts mental health. Connected with peers comments about importance of using assertive communication. Pt reported she wants to work on allowing others to help her instead of immediately saying no to help from others. Pt seemed to benefit from increasing awareness of healthy strategies to improve communication. Will continue IOP tx to promote use of healthy skills, continue working on decreasing avoidance, and prevent decompensation.
--- NOTE | 2023-07-18 14:48 | BH.MDN ---
Multi-Disciplinary Note Note 45-min Individual: Time Started:: 12:15 Date: 07/18/23 Purpose of session/treatment goals addressed:: To review progress with exposure goals, challenge negative self-talk, and discuss virtual session goals for . Eye Contact:: Good Motor Activity:: Appropriate Appearance:: Neat (wearing makeup and commented on getting myself together ) Speech:: Appropriate Mood:: Anxious Affect:: Congruent Thoughts:: Racing and No evidence of hallucinations/delusions noted Staff Interventions:: thought challenging, motivational interviewing, CBT techniques, mindfulness skills, discharge planning, strengths perspective and goal setting Client Response:: Pt responded well to session, open to meeting with therapist. Reviewed pt's progress with her fear ladder goals and exposure. Pt has been working on her goal of using her coffee pot (that pt felt was contaminated) every day for the past few weeks. Pt used the subjective units of distress or (SUDs) to rate her anxiety regarding this task. When pt started this goal a few weeks ago, pt's SUDs was a 9/10 with 10 being the highest. Pt reports her SUDs now would be a 3 for the coffee pot. Pt is working on sitting a chair in her bedroom as another exposure goal with a high SUDs score. Pt continues to report constant contamination worries that have not decreased, but pt is avoiding much less than she was six weeks ago. Pt went on a date last week that exposure pt to another person which was progress and pt is beginning the process of weaning off a medication which is also progress. Pt reports she is still worried that she will never get to her desired goal of having a family and having kids one day. Discussed that it is good to have goals for the future, but pt can benefit from being compassion to herself now and taking care of her level of functioning now. Pt receptive to this and reminded herself that she is making progress that will help her get to the goals and life she deserves. Pt's goal for session on is to put away some medications in her home that pt has been avoiding for months. Pt will meet with therapist virtually and practice exposure in the moment. Risks/Concerns:: No report of SI or thoughts of . Pt is currently weaning off her Zoloft and pt feels that she is more emotionally labile because of this. Progress Toward Goals/Plan:: Pt is making progress with utilizing healthy coping skills and reducing avoidance in some areas. Pt is touching more objects in her home without handwashing and she is consistently using her bell maker. However, pt's obsessive thoughts have not decreased since admission and this could be due to pt utilizing skills, but not being properly medicated. Pt is working on weaning off her Zoloft to try Luvox, but pt and her PCP are doing a very slow transition, so pt will not be starting her new medication for another two weeks. Pt continues to be very receptive to trying skills and working on exposure goals. Pt will continue IOP tx to promote mood stability, reduce avoidance, and improve overall functioning. Therapist will reach out to [facility] for pt to get outpatient therapist. Time Stopped:: 13:05
--- NOTE | 2023-07-19 12:08 | PCM.BH.PN ---
Progress Note Progress Note: History of Present Illness/Interim History: The patient is a 33-year-old single female with a history of OCD, anxiety and depression who is seen in follow-up at the [facility]. I last saw the patient 1 month ago and at that time medication was recommended for her significant OCD but the patient wishes to wait and discuss this with her primary care doctor. The patient states that since then she and her PCP have decided to wean her Zoloft slowly and then start her on Luvox when the Zoloft is weaned. She is planning to start the Luvox on July 28, 2023. She feels she is benefiting from the IOP and is learning valuable skills and using them which has helped her but she still struggles a lot of the time due to her significant OCD. Quite the staff she is engaged in the program. She remains fearful most of the time and continues to have intrusive thoughts about cleanliness and contamination and some rituals of excess handwashing and access to laundry and she continues to have worries about contamination. Sleep remains about 6 or 7 hours a night and the patient states that she no longer has any passive thoughts of . She also denies suicidal ideation, plan for suicide, homicidal ideation, hallucinations or delusions. She is still a worrier by nature and has occasional panic attacks. Current Psychiatric Medications: [] She will start Luvox at 25 mg p.o. daily around 1 week from now. She is finishing a slow wean of her Zoloft that her PCP is managing. She continues to take naltrexone 4 mg p.o. daily for brain fog from COVID prescribed by her CMP. Mental Status Examination: [] Patient is a thin 33-year-old female who is seen by telehealth and appears normal for stated age and is casually dressed and groomed with good hygiene. She has no psychomotor agitation or retardation. She is cooperative and pleasant during the interview. Eye contact is good and speech is normal rate and rhythm and fluent with no pressure. Mood is anxious. Affect is full and normal. Thought process is goal-directed and organized. Thought content: There is evidence of intrusive thoughts around contamination and health issues and rituals. There is no evidence of passive thoughts of , suicidal ideation, plan for suicide, homicidal ideation, hallucinations or delusions. Reality testing is intact. Intelligence is above average. Judgment is intact. Insight Limited but some present. Diagnoses: [] 1. Obsessive-compulsive disorder 2. Generalized anxiety disorder 3. Panic disorder 4. Major depressive disorder, recurrent, severe without psychosis 5. Work and primary support and health issues Plan: [] Patient will continue the IOP at [facility] as the structure, support, education and group therapy have benefited her. She felt safe during the interview and if it anytime she does not feel safe she will let us know or go to the emergency room. The risk, options, possible complications and side effects of the medications were again discussed with the patient and she understands accepts these. She will continue the plan as to weaning off her Zoloft and starting Luvox as discussed with her PCP. She will continue to follow-up with her outpatient providers and I will see the patient in follow-up while she is in the IOP.
--- NOTE | 2023-07-20 09:05 | BH.SGPN.GN ---
Behaviors/Verbalizations/Mental Status: []Eye contact is good. Motor activity is appropriate. Appearance is casual. Speech is Appropriate. Mood is anxious. Affect is congruent. Thoughts are linear and logical. No evidence of psychosis. Reviewed daily check in sheet and no reports of suicidal ideations or intent. Client Response/Progress/Benefit: []Pt responded well to session, attentive and engaged in session. Pt reports feeling anxious this morning as pt knows she has a virtual session scheduled for this afternoon. Pt shared she is feeling off and different right now which pt believes is due to weaning off her Zoloft. Pt received supportive statements from peers and therapist. Pt reflected on some of her progress which included meeting with Dr. Casey yesterday which pt shared went well and being half way through her medication change. Pt also gave herself credit for continuing to work on exposure goals while weaning off medication. Pt continues to struggle with giving herself credit, but pt is working on acknowledging her successes even if they feel small. Pt appeared to benefit from reflecting on positives and connecting with peers. Pt will continue IOP tx to promote mood stability, increase self-confidence, and reduce avoidance. Narrative Note: []
--- NOTE | 2023-07-20 10:15 | BH.SGPN.GN ---
Behaviors/Verbalizations/Mental Status: []Pt alert and oriented, casually dressed and groomed. Eye contact good. Motor activity appropriate. Speech within normal limits. Affect congruent, mood anxious and euthymic. Thoughts linear, logical, no signs of hallucinations or delusions. Client Response/Progress/Benefit: []Pt was an active participant in group discussion and activity. Attentive during psychoeducation. Along with peers, pt was able to identify barriers to taking action in their life. Identified several symptoms and stressors that she feels are holding her back from progress such as negative self-talk, fear of failure, stigma, and minimization. Stated these things have kept pt from making healthy changes, stepping out of her comfort zone and making meaningful connections, and reinforced self-sabotage. Pt shared that she wants to begin addressing the impact not addressing her OCD symptoms has had on her ability to take action. Benefited from increased self-awareness of obstacles. Will continue IOP tx to improve mood management, promote consistent skill application, and further reduce intrusive thinking. Narrative Note: []
--- NOTE | 2023-07-20 11:15 | BH.SGPN.GN ---
Behaviors/Verbalizations/Mental Status: []Pt alert and oriented, casually dressed and groomed. Eye contact good. Motor activity appropriate. Speech within normal limits. Affect congruent, mood euthymic. Thoughts linear, logical, no signs of hallucinations or delusions. Client Response/Progress/Benefit: []Pt responded well to session, taking notes and participating in worksheet discussion. Pt connected with the zones of action/change and that making sustainable change comes from stepping out of one?s comfort zone into the learning zone. Pt set a goal to gain control over her safety behaviors with her supplements/vitamins. Pt reported plans to challenge herself to start with putting her supplements/pills back in their spot in the cupboard by the end of the day. Pt identified using supports and skills like positive self-talk, opposite action, and talking to her therapist to help with this goal. Appeared to benefit from identifying a small goal to benefit mental health. Will continue IOP tx to prevent decompensation, reduce the use of unhealthy coping skills, and improve distress tolerance. Narrative Note: []
--- NOTE | 2023-07-20 14:47 | BH.MDN ---
Multi-Disciplinary Note Note 60-min Individual: Time Started:: 13:30 Date: 07/20/23 Purpose of session/treatment goals addressed:: To work on goal #1 of pt's tx goal by practicing exposure in a virtual setting. Another goal was to discuss discharge and outpatient therpay. Symptoms/Behavior:: This was a telehealth session which pt consented to. Eye Contact:: Good Motor Activity:: Appropriate Appearance:: Casual Speech:: Appropriate Mood:: Anxious Affect:: Congruent (tearful several times during session.) Thoughts:: Racing and No evidence of hallucinations/delusions noted Staff Interventions:: thought challenging, CBT techniques (pt worked on her exposure goal of putting away medications), mindfulness skills (pt practiced deep breathing and PMR ), discharge planning (Discussed outpatient therapy appointment for next week with Mirian julien.), strengths perspective and other (reviewed pt's SUDS and encouraged pt to utilize self-talk.) Client Response:: Pt responded well to session, open to meeting with therapist. Pt is at her home doing a virtual appointment with therapist as pt is working on an exposure goal today of putting away medications she has been avoiding. Pt has been avoiding this task because pt touched these medications when she had COVID and even though pt logically knows they are not contaminated, pt is extremely fearful of touching these. Pt rated this as a 9/10 using SUDs. Prior to complete the exposure task, pt practiced deep breathing and self-talk. Pt was able to reduce some anxiety and pt shared if I just do it fast and don't think I think that would help. Therapist provided encouragement as pt worked on her exposure goal and occasionally pt was reminded to breath that use the statement this is false fear. Pt was able to complete her goal and work on another task that pt had been avoiding. After pt completed these tasks, pt practiced progressive muscle relaxation which pt reported helped pt come down from a 9/10 to a 7/10 using SUDs. Pt stated her anxiety decreased while engaging in the task, but when she decided to do another task it increased. Pt was tearful and shared that she thinks this is due to weaning off her zoloft and because pt is often judgmental of herself. Pt was encouraged to keep track of the wins she shares while at [facility] by writing these down and keeping them in her binder. Pt was receptive to this and plans to write these down during first group. Pt reports looking forward to meeting her new therapist next week and pt understands she will have two weeks left of IOP. Risks/Concerns:: Same concerns as noted on 07/18/23. No SI or thoughts of noted. Progress Toward Goals/Plan:: Progress is not much different from 07/18/23 except for pt's progress today with facing an exposure goal and not utilizing gloves while doing this. Pt continues to be very engaged and consistent with her goals. Pt has an appointment with Mirian Julien next week on 07/25/23 and pt will get established with outpatient counseling to continue to work on ERP. Pt is weaning off her medication and hopefully pt will be able to start Luvox in the next few weeks. Pt will continue with IOP tx for two more weeks to promote gains made in reducing avoidance, increase self-confidence, and improve daily functioning. Time Stopped:: 14:23
--- NOTE | 2023-07-24 09:05 | BH.SGPN.GN ---
Behaviors/Verbalizations/Mental Status: [Patient was alert and oriented, appropriately dressed and groomed. Eye contact was good, motor activity normal, speech within normal limits. Affect congruent, mood content. Thoughts linear, logical, no signs of hallucinations or delusions. Reviewed Patients symptom tracker and the patient reports depressed mood, anxiety/panic attacks, agitation/irritability/anger, self-harm risk, and thoughts/risk of suicide within normal limits.] Client Response/Progress/Benefit: [Patient was engaged and open to the discussion. Patient reported her mood to be ?upbeat?. Patients first win was that she had a friend come over to her house. Patient shared that she has been paranoid about people coming to her home although she likes it because of all the sickness going around. Patients second win was that she went to a new [employer] yesterday all by herself although her mother couldn?t go with her. Patient stated she has been trying to push herself out of her comfort zone a little recently and has been successful. Patients stressor is that she hasn?t been sleeping well and her ex-boyfriend tries to reach out to her but doesn?t understand she doesn?t want to talk. Patient was interactive and respectful with other group members about their mental wins and stressors. Patient benefited from the discussion by listening to feedback and giving input on her peer?s stressors and mental health wins. Patient will continue with IOP treatment to help develop healthy skills, promote mood stability, and improve distress tolerance. ] Narrative Note: []
--- NOTE | 2023-07-24 10:10 | BH.SGPN.GN ---
Behaviors/Verbalizations/Mental Status: []Pt alert and oriented, casually dressed and groomed. Eye contact good. Motor activity appropriate. Speech within normal limits. Affect congruent, mood euthymic. Thoughts linear, logical, no signs of hallucinations or delusions. Client Response/Progress/Benefit: []Pt was an active participant during interactive group discussions. Attentive during psychoeducation on the six types of boundaries. Pt along with peers contributed to interactive discussion on defining what a boundary is and group identified challenges to setting boundaries. Group reviewed the 6 types of boundaries. Pt shared boundaries are hard for her because don't want to look bad or mean . Pt stated she recognizes boundaries are important to feel less drained. Pt benefited from increased awareness and insight on the importance/benefit to setting health boundaries. Will continue IOP tx to continue decreasing avoidance of anxious situations, challenge distortions, and prevent decompensation.
--- NOTE | 2023-07-24 11:15 | BH.SGPN.GN ---
Behaviors/Verbalizations/Mental Status: []Pt alert and oriented, casually dressed and groomed. Eye contact good. Motor activity appropriate. Speech within normal limits. Affect congruent, mood content. Thoughts linear, logical, no signs of hallucinations or delusions. Client Response/Progress/Benefit: [] Pt responded well to session AEB listening attentively to peers and providing input throughout. Pt attentive during psychoeducation on the different boundary styles. Pt identified she tends to be more porous and has a difficult time saying no to people which pt wants to work on changing. Pt was given a handout on strategies for healthy boundary setting. Identified wanting to practice avoiding excessive apologizing, reminding herself that being assertive is not mean, and reinforcing the boundaries. Appeared to benefit from increasing insight to boundary setting and the impacts on mental health. Seemed to benefit from increased awareness of boundary styles and strategies to improve setting boundaries. Will continue IOP tx to increase distress tolerance skills, continue use of healthy coping skills, and promote mood stability. Narrative Note: []
--- NOTE | 2023-07-26 09:05 | BH.SGPN.GN ---
Behaviors/Verbalizations/Mental Status: [Patient was alert and oriented, appropriately dressed and groomed. Eye contact was good, motor activity normal, speech within normal limits. Affect congruent, mood content. Thoughts linear, logical, no signs of hallucinations or delusions. Reviewed Patients symptom tracker and the patient reports depressed mood, anxiety/panic attacks, agitation/irritability/anger, self-harm risk, and thoughts/risk of suicide within normal limits.] Client Response/Progress/Benefit: [Patient was engaged and open to the discussion. Patient reported her mood to be ?upbeat?. Patients first win was that she feels very accomplished because yesterday she made dinner, did her dishes, and did her laundry. Patient reported that doing all 3 of those things doesn?t typically happen in the same day. Patients second win was that she has been driving around looking for jobs and made two stops yesterday. Patients stressor is that she spilled coffee in her car on her way to group and she is highly allergic to mold, so she is afraid it?ll mold. Patient was interactive and respectful with other group members about their mental wins and stressors. Patient benefited from the discussion by listening to feedback and giving input on her peer?s stressors and mental health wins. Patient will continue with IOP treatment to help develop healthy skills, promote mood stability, and improve distress tolerance. ] Narrative Note: []
--- NOTE | 2023-07-26 10:15 | BH.SGPN.GN ---
Behaviors/Verbalizations/Mental Status: []Pt alert and oriented, casually dressed and groomed. Eye contact good. Motor activity appropriate. Speech within normal limits. Affect congruent, mood euthymic. Thoughts linear, logical, no signs of hallucinations or delusions. Client Response/Progress/Benefit: [] Pt receptive of session, actively engaged throughout AEB taking notes, providing input, and contributing in small group discussion. Appeared to connect with group topic of cognitive distortions and the impact of thought patterns on mental health, coping behaviors, and relationships. Pt connected most with distortions of labeling, catastrophizing, and shoulds. Pt is getting better with not labeling herself. ?Pt able to identify how these distortions impact functioning. Pt appeared to benefit from gaining insight on distorted thinking patterns and how this impacts overall mental health. Will continue IOP tx to promote gains made in reducing avoidance, increase self-compassion, and improve daily functioning. ? Narrative Note: []
== END 2023-07-26 23:59 ==
LOC: BHIOP 07:30
PROVIDERS: PCP Nurse Practitioner Family; Referring Provider Psychiatry & Neurology Psychiatry; Visit Provider Psychiatry & Neurology Psychiatry
DX: F42.9 Obsessive-compulsive disorder, unspecified (principal); F41.1 Generalized anxiety disorder; F41.0 Panic disorder [episodic paroxysmal anxiety]; F33.2 Major depressive disorder, recurrent severe without psychotic features
CPT/HCPCS: 99214; H2020; S9480; 90832; 90834; 90837; 90847

== ENCOUNTER 2023-07-27 07:49 | Outpatient (RCR) | payer MEDICAID, SELFPAY ==
[2023-07-27 00:21] VITALS: BP 124/78; PULSE 70
--- NOTE | 2023-07-28 09:05 | BH.SGPN.GN ---
Behaviors/Verbalizations/Mental Status: [Patient was alert and oriented, appropriately dressed and groomed. Eye contact was good, motor activity normal, speech within normal limits. Affect congruent, mood content. Thoughts linear, logical, no signs of hallucinations or delusions. Reviewed Patients symptom tracker and the patient reports depressed mood, anxiety/panic attacks, agitation/irritability/anger, self-harm risk, and thoughts/risk of suicide within normal limits.] Client Response/Progress/Benefit: [Patient was engaged and open to the discussion. Patient reported her mood to be ?grateful?. Patients first win and stressor go together because she is graduating the program next week. She stated she feels as if the program is ?kicking her out of the birds nest suddenly?. The group had a conversation about how its good that there is a time limit to these things because then we won?t rely and become codependent on it. 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 Patients second win is that yesterday her and her mom went for a walk because of the unexpected, nice weather we had. Patient was interactive and respectful with other group members about their mental wins and stressors. Patient benefited from the discussion by listening to feedback and giving input on her peer?s stressors and mental health wins. Patient will continue with IOP treatment to help develop healthy skills, promote mood stability, and improve distress tolerance. ] Narrative Note: []
--- NOTE | 2023-07-28 10:10 | BH.SGPN.GN ---
Behaviors/Verbalizations/Mental Status: [] Eye contact is good. Motor activity is appropriate. Appearance is casual. Speech is Appropriate. Mood is anxious and euthymic. Affect is congruent. Thoughts are linear and logical. No evidence of psychosis. Client Response/Progress/Benefit: []Pt engaged participant AEB listening to others, engaging in activity, and providing feedback at times. Attentive during psychoeducation and provided insight into obstacles the impede mental wellness. Pt shared with group current mental health reality and desired mental health reality. Stated challenging herself to continue to sit with the uncomfortable as a step she is currently making to get closer to desired reality. Identified barriers to desired reality include: Avoidance, fear of failure, anxiety, and unrealistic expectations. Benefited from taking look at current mental health state and obstacles for progress. Pt to continue IOP to improve daily functioning, improve distress tolerance and reduce safety behaviors, and prevent decompensation. Narrative Note: []
--- NOTE | 2023-07-28 11:10 | BH.SGPN.GN ---
Behaviors/Verbalizations/Mental Status: [] Eye contact is good. Motor activity is appropriate. Appearance is casual. Speech is Appropriate. Mood is anxious. Affect is congruent. Thoughts are linear and logical. No evidence of psychosis Client Response/Progress/Benefit: [] Pt was an active participant in group discussion and activity. Worked with group to identify strategies to help overcome barriers and obstacles to desired reality. Group developed strategies for the common barriers of avoidance, feeling burned out, unrealistic expectations, emotional reasoning, and difficulty asking for help. Identified personal barriers to desired reality and choose one obstacle to work on this week (Isolation). She notes plans to get out and about with a friend. Benefited from group by identifying obstacles and solutions to desired reality. Will continue in IOP to prevent decompensation, maintain gains, and improve functioning to return to work. Narrative Note: []
--- NOTE | 2023-07-31 09:00 | BH.SGPN.GN ---
Behaviors/Verbalizations/Mental Status: [Patient was alert and oriented, appropriately dressed and groomed. Eye contact was good, motor activity normal, speech within normal limits. Affect congruent, mood content. Thoughts linear, logical, no signs of hallucinations or delusions. Reviewed Patients symptom tracker and the patient reports depressed mood, anxiety/panic attacks, agitation/irritability/anger, self-harm urges, and thoughts/risk of suicide within normal limits.] Client Response/Progress/Benefit: [Patient was engaged and open to the discussion. Patient reported her mood to be ?upbeat?. Patient stated her first win was that someone had given her groceries over the weekend. She shared that since she hasn?t been working money has been stressful. She stated she was able to clean her fridge out too which gave her the motivation. Her second win was that her and her mom went to the new latter day she went to yesterday and spent some time outside since it was nice. Patient reported that her stressor is that she hasn?t started her medication and has not been unmedicated for 12 years. She said that she has been experiencing mood swings and irritability. Patient was interactive and respectful with other group members about their mental wins and stressors. Patient benefited from the discussion by listening to feedback and giving input on her peer?s stressors and mental health wins. Patient will continue with IOP treatment to help develop healthy skills, promote mood stability, and improve distress tolerance. ] Narrative Note: []
--- NOTE | 2023-07-31 10:10 | BH.SGPN.GN ---
Behaviors/Verbalizations/Mental Status: []Pt alert and oriented, causally dressed and groomed. Eye contact good. Motor activity appropriate. Speech within normal limits. Affect congruent, mood euthymic and anxious. Thoughts linear, logical, no signs of hallucinations or delusions. Client Response/Progress/Benefit: [] Pt was actively engaged, providing input, and taking notes throughout session. Connected with the topic of pitfalls and listened to group discussion on internal and external barriers that prevent from choosing a healthier path to mental wellness. Group worked together to identify examples of personal internal pitfalls and pt identified theirs as avoidance of anxious situations and distorted thoughts. Pt benefited from group as pt learned to better identify and normalize potential barriers to improving mental health symptoms. Pt also gained awareness of the difference between external triggers and self-sabotaging behaviors. Pt will continue IOP tx to continue use of healthy coping skills, continue decreasing avoidance, and prevent decompensation.
--- NOTE | 2023-07-31 11:10 | BH.SGPN.GN ---
Behaviors/Verbalizations/Mental Status: []Pt alert and oriented, neatly dressed and groomed. Eye contact good. Motor activity appropriate. Speech within normal limits. Affect constricted, mood agitated. Thoughts linear, logical, no signs of hallucinations or delusions. Client Response/Progress/Benefit: [] Pt receptive of session, engaged throughout AEB actively contributing and listening to discussion, as well as taking notes. Pt participated in the experiential activity and processed with group how their emotions, perspective, and reactions positively and negatively impacted the outcome. Pt identified pitfalls they struggle with and shared wanting to work on pitfall of avoidance caused by anxiety by continuing to practice exposure therapy to reduce avoidance and compulsions. Benefited from identifying personal pitfalls and strategies to overcome these pitfalls. Will continue IOP tx to promote gains, reinforce healthy coping skills, and establish aftercare. Narrative Note: []
--- NOTE | 2023-07-31 15:34 | BH.MDN ---
Multi-Disciplinary Note Note 45-min Individual: Time Started:: 12:15 Date: 07/31/23 Purpose of session/treatment goals addressed:: To address current stressors and discuss strategies to help cope with these stressors. Another goal was to discuss discharge and aftercare. Eye Contact:: Good Motor Activity:: Appropriate Appearance:: Neat Speech:: Tangential and Rapid Mood:: Anxious Affect:: Congruent Thoughts:: Racing, Circular and No evidence of hallucinations/delusions noted Staff Interventions:: thought challenging, CBT techniques, discharge planning, strengths perspective and other (maintenance plan) Client Response:: Pt responded well to session, open to meeting with therapist. Pt stated she had a good first session last week with her new therapist and she thinks that she will connect well with her. Pt's stressor today is that her ex-boyfriend recently reached out to pt and this triggered grief and sadness. Pt shared she knows that she should block his number, but pt is also having a hard time accepting the total end of the relationship. Discussed what respecting pt's personal boundaries would look like and pt shared the best choice would be to block him. Pt is also stressed about leaving IOP, but pt also knows that it is healthy to move forward with her personal goals. Pt plans to do IOP aftercare and pt was receptive to creating a maintenance plan. Pt identified some of her daily, weekly, and monthly self-care activities that will help pt maintain gains. Pt's daily self-care included going to bed on time, hydrating, doing a devotional, doing at least one exposure task a day, and eventually taking a medication. Weekly, pt wants to focus on walking/exercise, therapy, and spending time with supports. Monthly/occasionally, pt wants to set a goal to have someone to her apartment or go to someone else's home. Risks/Concerns:: No SI or thoughts of reported. Progress Toward Goals/Plan:: Pt will continue with IOP tx for two more sessions and discharge at the end of the week. Pt has made progress with reducing avoidance and increasing self-confidence. Pt continues to struggle with obsessive thoughts and contamination OCD which pt will continue to work on with her outpatient therapist. Time Stopped:: 13:00
--- NOTE | 2023-08-01 09:05 | BH.SGPN.GN ---
Behaviors/Verbalizations/Mental Status: [] Eye contact is good. Motor activity is appropriate. Appearance is casual. Speech is Appropriate. Mood is anxious. Affect is congruent. Thoughts are linear and logical. No evidence of psychosis. Reviewed daily check in sheet and no reports of suicidal ideations or intent. Client Response/Progress/Benefit: [] Pt was an active participant in group discussions. Attentive. Daily symptom tracker notes /5 for anxiety and irritability. Able to identify mental health wins in the form of self-care and utilizing skills to manage frustration. Pt states I was so angry that I screamed . [place] as if she needed to release her internal stress. Primarily challenging cognitive distortions (catastrophizing) and intrusive thoughts regarding contamination. She continues to wean off her medication with plan to obtain labs and then start a medication specifically for OCD.Progress noted per pt report. She is scheduled to discharge from IOP this week which she reports she is very anxious about. Benefited from group support, encouragement, and feedback. Will continue in [facility] to prevent decompensation, increase healthy coping, and to improve functioning. Narrative Note: []
--- NOTE | 2023-08-01 11:10 | BH.SGPN.GN ---
Behaviors/Verbalizations/Mental Status: []Pt alert and oriented, neatly dressed and groomed. Eye contact good. Motor activity appropriate. Speech within normal limits. Affect flat, mood anxious/panic. Thoughts linear, logical, no signs of hallucinations or delusions. Client Response/Progress/Benefit: [] Pt responded well to session, contributing to discussion, and engaged during the activity. Pt did struggle today though due to pt reporting her OCD was triggered due to another pt recently being sick and attending IOP. Group identified the benefits of change and worked with the group to identify barriers. Pt?s barriers to change included: fear of failure, urge to avoid discomfort, and negative thinking patterns. Pt participated along with group in activity where they identified and discussed the emotions related to change. Pt provided examples of how pt has benefitted from change even though pt is fearful of change. Benefited from increased awareness and understanding of emotions, benefits, and barriers related to change. Pt will continue IOP tx to promote use of healthy coping skills, establish aftercare, and improve mood. Narrative Note: []
--- NOTE | 2023-08-01 11:15 | BH.SGPN.GN ---
Behaviors/Verbalizations/Mental Status: [] Eye contact is good. Motor activity is appropriate. Appearance is casual. Speech is Appropriate. Mood is euthymic. Affect is full. Thoughts are linear and logical. No evidence of psychosis. Client Response/Progress/Benefit: [] Pt responded well to session, attentive. Did well to engage in and process activity. Pt worked with group to relate the strategies used to overcome barriers in the activity to managing change in own life. Pt identified wanting to work on not feeling like my anxiety fire alarm is always on . Pt identified that she is the action phase. Benefited from increased awareness of changes desired and current stage of change. Will continue in IOP to maintain gains and prevent decompensation. Narrative Note: []
--- NOTE | 2023-08-03 08:50 | BH.AFTERPLAN ---
Aftercare Plan Demographics Treatment End Date:: 08/03/23 Psychiatrist:: Sobia Casey Psychiatrist Office #:: [phone] [facility] Therapist:: Kami Loredo Therapist Phone #:: [phone] Medications Home Medications sertraline 25 mg tablet (Zoloft) 37.5 mg PO DAILY 06/07/23 naltrexone 4.5 mg capsule (Lotrexone) 4.5 mg PO DAILY 06/21/23 Plan Details Progress/Aftercare Plan Details:: Milena has responded well to treatment as evidenced by Milena consistently attending IOP sessions and her reduction of DSM-5 scores since admission. Milena was always attentive and receptive to learning during group and individual sessions. Milena actively applied coping skills outside of [facility] and reports overall her mood is improved and she is functioning better than she was several months ago. Milena?s overall symptom reduction is 15% since admission with anxiety decreasing by 33% and OCD symptoms decreasing by 25%. Milena has increased self-confidence in her ability to manage stressors, emotions, and her distorted thinking patterns. Most importantly, Milena has worked very hard on reducing her avoidance, safety behaviors, and engagement in compulsions. This is something DSM-5 scores cannot effectively measure and Milena deserves a lot of credit for. Strategies for Success:: 1. Opposite action! Continue to break that cycle of anxiety, guilt, and depression by not letting emotions be the only drivers of your bus. 2. Remember that thoughts are thoughts NOT facts! You have power in if you give thoughts the time of day or not. 3. self-care! You deserve to take time for you and you also deserve to face the not so fun self-care like setting boundaries and advocating for your needs 4. Self-compassion! You are human and you will make a mistake?BUT that doesn?t mean you are a failure or not good enough. Give yourself credit for all the wonderful things you do. 5. Continue to sit with the uncomfortable and work on exposure. Remember there is not REALLY a bear at the door with a gun 6. Practice positive self-talk and keep track of your wins. 7. Remember progress isn?t linear! You may have a setback or bump in the road, but that doesn?t mean you?ve lost all progress. 8. self-reflection and self-awareness. 10. Live in the [place]!! Appointments Appointments/Referrals to Other Services:: 1. Follow up with your PCP for medication management. Last seen in June. 2. Follow up with Mirian Wolfe for individual counseling. Last appointment on 07/25/23. 3. IOP aftercare starting on 08/10/23 at 2:00pm
--- NOTE | 2023-08-03 09:05 | BH.SGPN.GN ---
Behaviors/Verbalizations/Mental Status: [] Eye contact is good. Motor activity is appropriate. Appearance is casual. Speech is Appropriate. Mood is euthymic. Affect is full. Thoughts are linear and logical. No evidence of psychosis. Reviewed daily check in sheet and no reports of suicidal ideations or intent. Client Response/Progress/Benefit: [] Pt was an active participant in group discussion. Attentive. Provided appropriate feedback. Daily symptom tracker notes 5 for anxiety and 5 for depression. Emotion for today is hopeful . Shared that today is her last day in [facility] as she is discharging successfully. States I better than I was and I'm so grateful . Reports that the program was helpful for her. Identified the group topic of anxiety as being the group that resonated the most with her. She shared her recent stressors as well as the skills that have been most helpful. I'm not pressing that fire alarm for my anxiety as much . Shared how she would catastrophize and get caught in her head for long periods of time which impacted her functioning. Reframing, challenging, and accepting thoughts, anxieties, and distress. Progress noted per pt report. Benefited from group support, encouragement, and feedback. Set to be discharged from [facility] today. She reports aftercare set up for counseling and med management. Narrative Note: []
--- NOTE | 2023-08-03 11:15 | BH.SGPN.GN ---
Behaviors/Verbalizations/Mental Status: []Pt alert and oriented, neatly dressed and groomed. Eye contact good. Motor activity appropriate. Speech within normal limits. Affect congruent, mood anxious and euthymic. Thoughts linear, logical, no signs of hallucinations or delusions. Client Response/Progress/Benefit: [] Pt receptive to session AEB contributing to small group discussion, as well as listening attentively to others, and taking notes. Worked with group to brainstorm the positive and negative aspects of stress on physical and mental health. Group did well to identify the benefits of stress as well as the impact of distress on performance, relationships, and mental health. Pt identified their personal top stressors as: impact of anxiety on her life, finances, and finding employment. Pt seemed to benefit from increased awareness of current stressors and impact stress has on mental health. Pt will discharge from IOP tx today as pt has accomplished her tx goals and has reached the maximum benefit of IOP. Narrative Note: []
--- NOTE | 2023-08-03 11:51 | BH.DS_ITS ---
Discharge Summary Demographics Date of Admission:: 06/06/23 Discharge Date: 08/03/23 Presenting Problems at Admission:: Pt is a 33 year-old female with a history of OCD, PTSD, LUX, and MDD. Pt was referred to [facility] tx by her outpatient therapist due to exacerbation of mental health symptoms which have been impacting her functioning. Pt's symptoms have been worsening since pt was fired from her job with little explanation. Pt has struggled with mental health for years, but pt's OCD symptoms have become very severe. Pt reports she has intrusive thoughts about contamination and health and compulsions of handwashing up to 100 times a day. 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 Pt currently endorses a depressed mood, crying spells, thoughts of , isolation, avoidance, poor concentration, issues with memory, panic attacks, constant fear, and racing thoughts. Pt's symptoms were impacting her daily, occupational, familial, and social functioning. Discharge Diagnoses:: OCD F 42; PTSD; Major Depressive Disorder, recurrent, severe, without psychosis, Generalized anxiety disorder Reason for Discharge:: Pt has accomplished her tx goals AEB pt's reduction in overall symptoms, self-report of improved functioning, and self-report of improved mood. Pt not longer meets criteria for [facility] level of care and will follow up with individual therapy and [facility] aftercare group. Treatment Progress During Treatment & Response: Pt has responded well to treatment as evidenced by Pt consistently attending IOP sessions and her reduction of DSM-5 scores since admission. Pt was always attentive and receptive to learning during group and individual sessions. Pt actively applied coping skills outside of IOP and reports overall her mood is improved and she is functioning better than she was several months ago. Pt?s overall symptom reduction is 15% since admission with anxiety decreasing by 33% and OCD symptoms decreasing by 25%. Pt has increased self-confidence in her ability to manage stressors, emotions, and her distorted thinking patterns. Most importantly, Pt has worked very hard on reducing her avoidance, safety behaviors, and engagement in compulsions. This is something DSM-5 scores cannot effectively measure and Pt deserves a lot of credit for. Issues Still to be Addressed:: Pt is still not medicated for her OCD and can benefit significantly from starting her new medication. Pt is now weaned off Zoloft, but has not started Luvox. Pt can benefit from working on ERP therapy and increasing distress tolerance skills through exposure. Pt can also benefit from building more balanced core beliefs, practicing self-compassion, boundary setting, and identifying what she wants to do for work. Lastly, pt is working on increasing social connections and building relationships. Discharge Recommendations/Instructions:: Pt will follow up with her PCP for medication management. Pt sees Mirian Wolfe for individual therapy and her next session is 08/08/23. Pt will begin IOP aftercare on 08/10/23. Discharge Handout
--- NOTE | 2023-08-03 13:49 | BH.MDN ---
Multi-Disciplinary Note Note 30-min Individual: Time Started:: 12:10 Date: 08/03/23 Purpose of session/treatment goals addressed:: To establish closure in tx, review aftercare plan, and discuss strategies for success. Eye Contact:: Good Motor Activity:: Appropriate Appearance:: Neat Speech:: Tangential Mood:: Euthymic and Anxious Affect:: Congruent Thoughts:: Racing and No evidence of hallucinations/delusions noted Staff Interventions:: CBT techniques, discharge planning and strengths perspective Client Response:: Pt responded well to session, open to meeting with therapist. Pt reported feeling grateful for the program and support. Pt is anxious about leaving, but pt reports having many tools in my tool box to help pt with her anxiety. Pt has not yet started her new medication as pt is waiting to hear back from her PCP about pt's EKG results. Pt also wants to get into an infectious disease specialist to figure out what to do for pt's Lyme's Disease. Pt shared she had a setback yesterday as pt sobbed about being on the hamster wheel with her anxious thoughts. Pt stated she is better with being more compassionate to herself and challenging herself to give herself credit. Pt reflected on her progress with reduced avoidance in using objects in her home and with being around more people. Pt will continue working on ERP with her outpatient therapist and pt shared they will likely do EMDR as well. Risks/Concerns:: No SI or thoughts of reported. Progress Toward Goals/Plan:: Pt will discharge from IOP tx today as pt has accomplished her tx goals and has reached maximum benefit from IOP. Pt will continue with outpatient counseling and she will begin IOP aftercare group on 08/10/23. Time Stopped:: 12:30
--- NOTE | 2023-08-04 11:10 | BH.SGPN.GN ---
Behaviors/Verbalizations/Mental Status: []Eye contact is good. Motor activity is appropriate. Appearance is casual. Speech is Appropriate. Mood is euthymic. Affect is congruent. Thoughts are linear and logical. No evidence of psychosis. Client Response/Progress/Benefit: []Pt was an active participant in group discussions and experiential activity. Attentive during psychoeducation on the 4 A's (Avoid, adapt, alter, accept) of coping with stress. Shared that she would benefit most from working on challenging perspective and focusing on what's within her control. Was able to identify the connection between the experiential activity and utilization of stress management skills. Benefited from increased awareness of stress management strategies. Pt has demonstrated significant treatment progress and will discharge from [facility] today.
== END 2023-08-03 12:11 | disposition home or self-care (01) ==
LOC: BHIOP 07:49
PROVIDERS: PCP Nurse Practitioner Family; Referring Provider Psychiatry & Neurology Psychiatry; Visit Provider Psychiatry & Neurology Psychiatry
DX: F42.9 Obsessive-compulsive disorder, unspecified (principal); F43.10 Post-traumatic stress disorder, unspecified; F33.2 Major depressive disorder, recurrent severe without psychotic features; F41.1 Generalized anxiety disorder
CPT/HCPCS: H2012; H2020; S9480; 90832; 90834

== ENCOUNTER 2023-08-17 08:00 | Outpatient (RCR) | payer MEDICAID, SELFPAY ==
--- NOTE | 2023-08-17 14:00 | BH.COMM ---
Communication Note Communication with Client Communication Note: Patient completed IOP and presents today to start relapse prevention group which meets once weekly (1.5 hours) for 8 weeks. Case discussed with Dr. Taylor with plan to admit with dx of F42.0 and F33.2
--- NOTE | 2023-08-17 14:00 | BH.SGPN.GN ---
Behaviors/Verbalizations/Mental Status: []Pt alert and oriented, neatly dressed and groomed. Eye contact good. Motor activity appropriate. Speech within normal limits. Affect congruent, mood euthymic and anxious. Thoughts linear, logical, no signs of hallucinations or delusions. Client Response/Progress/Benefit: []Pt receptive of session, engaged throughout. Pt reports she has not started a medication yet, but she is getting closer to starting. Pt has been seeing her outpatient providers consistently, but she did not have an appointment this week. Pt reports use of deep breathing and continuing with her exposure goals with stressors. Receptive of discussion on personal accountability and its importance in maintaining mental health stability. Engaged in brainstorming strategies for improving ability to hold themselves accountable and participated in the activity. Pt admitted that the activity elicited frustration and stress, but pt did not give up. Reported wanting to work on putting her daily wins on a calendar that pt can see every day. Pt feels she is visually driven and this will help her. Pt seemed to benefit from support from peers and increasing understanding of personal accountability benefits and strategies. Will continue IOP aftercare group to maintain gains and prevent decompensation. Narrative Note: []
--- NOTE | 2023-08-17 16:00 | BH.MTP ---
Master Treatment Plan Patient Information Program Physician:: Dr. Sobia Casey Primary Therapist:: Kami WHITE Psychiatric Diagnoses Psychiatric Diagnoses:: OCD F 42; PTSD; Major Depressive Disorder, recurrent, severe, without psychosis, Generalized anxiety disorder Diagnosis Code(s):: F 42 Estimated LOS Estimated LOS (in weeks):: 8 Problem/Goal #1 Problem/Goal #1 Stated Goal:: client will maintain or see a reduction in symptoms AEB client score on the DSM 5 cross-cutting measure and improve client's daily functioning. Objectives Objective #1: Stated Objective: Client will continue to consistently apply healthy coping skills to maintain progress made in IOP tx. Interventions: Through group therapy, client will be provided with education on healthy maintenance behaviors, relapse prevention techniques, and healthy coping strategies. Discharge Criteria: Client will have accomplished this goal when can report using at least 2 maintenance skills to prevent decompensation compared to original IOP DSM-5 scores Target Date: 10/12/23 Review Date: 09/14/23 Status: open Objective #2: Stated Objective: Client will learn and utilize 2-3 maintenance strategies to prevent decompensation from original IOP DSM-5 scores. Interventions: Through group therapy, client will be provided with education on healthy maintenance behaviors, relapse prevention techniques, and healthy coping strategies. Discharge Criteria: Client will have accomplished this goal when can report using at least 2 maintenance skills to prevent decompensation compared to original IOP DSM-5 scores Target Date: 10/12/23 Review Date: 09/14/23 Status: open
== END 2023-08-24 23:59 ==
LOC: BHOG 08:00
PROVIDERS: PCP Nurse Practitioner Family; Referring Provider Psychiatry & Neurology Psychiatry; Visit Provider Psychiatry & Neurology Psychiatry
DX: F33.2 Major depressive disorder, recurrent severe without psychotic features (principal); F42.9 Obsessive-compulsive disorder, unspecified
CPT/HCPCS: 90853

== ENCOUNTER 2023-08-25 07:01 | Outpatient (RCR) | payer MEDICAID, SELFPAY ==
--- NOTE | 2023-09-07 14:00 | BH.SGPN.GN ---
Behaviors/Verbalizations/Mental Status: []Pt alert and oriented, casually dressed and groomed. Eye contact good. Motor activity appropriate. Speech within normal limits. Affect congruent, mood anxious and euthymic. Thoughts linear, logical, no signs of hallucinations or delusions. Client Response/Progress/Benefit: [] Pt receptive of session, engaged throughout. Pt shared meeting with outpatient therapist this week and has not yet started her medications pending physical health appointments. Reports the coping skills used throughout the week included: prayer, opposite actions, self-compassion, and thought challenging. Receptive of discussion on the three components of the Wellness [place] (social, mental health, and physical) and the importance of balancing each of these areas. Pt contributed to the discussion on the variables impacting each area of wellness including: biology, environment, attitude, behavior, technology, and social support network. Completed an assessment reviewing personal wellness in each pillar of the wellness triangle. Identified wanting to work on physical wellness by creating a consistent schedule for weekly walks/physical activity. Pt seemed to benefit from support from peers and increasing understanding of the relationship between different areas of wellness. Will remain in the aftercare program to maintain gain and prevent decompensation. Narrative Note: []
--- NOTE | 2023-09-07 16:53 | BH.TPR ---
Treatment Plan Review Demographics Date of Admission:: 08/17/23 Date of Treatment Plan Review:: 09/07/23 Admitting Diagnoses:: OCD F 42; PTSD; Major Depressive Disorder, recurrent, severe, without psychosis, Generalized anxiety disorder Current Diagnoses:: OCD F 42; PTSD; Major Depressive Disorder, recurrent, severe, without psychosis, Generalized anxiety disorder Patient Status Patient's Response to Treatment:: Pt continues to respond well to treatment AEB pt's consistent attendance, ongoing attentiveness and engagement in group discussions, and continued reporting use of skills outside treatment environment. Pt's OCD symptoms do not appear to be resolving further since IOP discharge, but pt reports she is benefitting from getting more socialization. Status of Current Problems and Symptoms: Pt's symptoms of OCD are ongoing and pt reports she is still engaging in handwashing many times every day. Pt reports she has not started a medication because pt has been meeting with a Lyme Disease specialist and they want to rule that out before starting a medication. Pt reports feeling anxious every day, avoiding situations that make her feel anxious, and feeling down more than half the days of the week. Pt admits that she does not socialize much outside of group, so coming to aftercare has been helpful. Pt is a social person, so being isolated is contributing to pt's depressive symptoms currently. Progress Problem #1: Problem Name:: Pt will maintain or see a reduction in sx Status of Goals:: Obj 1 ? not complete. Pt?s DSM-5 scores are almost back to her IOP admission scores. Pt reports she has been seeing her counselor consistently, but pt still has not started an OCD medication. This could be hindering pt from making further progress in reducing symptoms. Pt reports actively using healthy coping skills like opposite action, self-compassion, and positive affirmations. Obj 2 - complete with ongoing work encouraged. Pt had been reporting using opposite action, going for walks, reaching out to supports, and practicing gratitude. Team Recommendations:: Recommended client continue IOP aftercare group in addition to attending regular outpatient counseling in order to maintain gains and prevent decompensation. Pt also has not started any medications to help with her OCD and this could be contributing to pt's scores on the DSM-5 not decreasing further.
--- NOTE | 2023-09-14 14:00 | BH.SGPN.GN ---
Behaviors/Verbalizations/Mental Status: []Pt alert and oriented, neatly dressed and groomed. Eye contact good. Motor activity appropriate. Speech within normal limits. Affect congruent, mood euthymic and anxious. Thoughts linear, logical, no signs of hallucinations or delusions. Client Response/Progress/Benefit: [] Pt receptive of session, engaged throughout. Pt did not have an appointment with a therapist this week. Pt has been consistent with taking meds and using coping skills. These skills included: getting to bed sooner, walking, and getting out of the house. Receptive of discussion on sitting with the uncomfortable and emotional urges. Pt contributed to the discussion of distress tolerance and how building distress tolerance can help improve mood stability and resilience. Pt looked at a recent situation that was distressing and wrote out low distress tolerance and high distress tolerance responses. Pt wants to work on advocating for herself. Pt seemed to benefit from support from peers and increasing understanding of distress tolerance. Will continue IOP aftercare tx to promote gains made in IOP and promote mood stability. Narrative Note: []
== END 2023-09-24 23:59 ==
LOC: BHOG 07:01
PROVIDERS: PCP Nurse Practitioner Family; Referring Provider Psychiatry & Neurology Psychiatry; Visit Provider Psychiatry & Neurology Psychiatry
DX: F33.2 Major depressive disorder, recurrent severe without psychotic features (principal); F41.1 Generalized anxiety disorder; F43.10 Post-traumatic stress disorder, unspecified; F42.9 Obsessive-compulsive disorder, unspecified
CPT/HCPCS: 90853

== ENCOUNTER → 2023-08-29 | Outpatient (CLI) | payer MEDICAID, SELFPAY ==
[2023-08-29 11:10] LABS: Erythrocyte Sedimentation Rate 3 mm/hr (0-30)
[2023-08-29 11:13] LABS: Absolute Lymphocyte Count 1.85 X10^3/uL (0.83-4.51); Basophil# 0.04 X10^3/uL; Basophil% 0.5 % (0-1); Eosinophil# 0.07 X10^3/uL; Eosinophils% 0.8 % (0-5); Hematocrit 41.6 % (37-47); Hemoglobin 13.5 g/dL (12.0-15.0); Lymphocyte # 1.85 X10^3/ul (0.83-4.51); Lymphocyte % 21.7 % (19-41); Mean Corp Hgb Conc 32.5 g/dL (32-36); Mean Corpuscular Hgb 29.9 pg (27.0-32.0); Mean Platelet Vol. 11.8 fl (6.2-12.0); Monocyte# 0.54 X10^3/uL; Monocyte% 6.3 % (0-10); NRBC Flagged by Analyzer 0 % (0-5); Neutrophil # 6.02 X10^3/uL (2.7-7.7); Neutrophil % 70.5 % (47-70); Platelet Count 226 K/mm3 (150-450); RBC Distribution Width CV 12.8 % (11.6-14.6); RBC Distribution Width SD 43.3 fl (35.1-43.9); Red Blood Count 4.52 M/mm3 (4.2-5.4); White Blood Count 8.5 K/mm3 (4.4-11.0)
[2023-08-29 11:23] LABS: Color, Urine Yellow (Yellow); Glucose, Dipstick Normal (Normal); Ketone-Dipstick Negative (Negative); Leukocyte Esterase-Dipstick 25 /ul (Negative); Nitrite-Dipstick Negative (Negative); Occult Blood-Urine Negative /ul (Negative); Protein-Dipstick Negative (Negative); Urine Bilirubin Dipstick Negative (Negative); Urine Clarity Sl. Cloudy (Clear); Urine Urobilinogen Normal (Normal); Urine pH 6.5 (5.0 - 8.0)
[2023-08-29 11:49] LABS: ALB/GLOB Ratio 1.1 RATIO (0.9-2.4); AST(SGOT) 16 U/L (15-37); Alanine Aminotransfer ALT/SGPT 23 U/L (13-56); Albumin, Serum 4.1 g/dL (3.2-5.0); Alkaline Phosphatase 52 U/L (45-117); Anion Gap 7 (5-15); BUN 16 mg/dL (7-18); BUN/Creat Ratio 19.2 RATIO (10-20); CPK Total, Creatine Kinase 84 U/L (26-192); CRP < 2.90 mg/L (0.0-3.0); Calcium,Total 9.1 mg/dL (8.5-10.1); Chloride 107 mmol/L (98-107); Creatinine, Serum 0.83 mg/dL (0.55-1.02); EST Glomerular Filtration Rate 85 mL/min (>60); Est Glom Filt Rate - Afr Amer 103 mL/min (>60); Globulin 3.8 g/dL (2.2-4.2); Glucose 95 mg/dL (74-106); LDH 153 U/L (84-246); Protein, Total 7.9 g/dL (6.4-8.2); Sodium Level 140 mmol/L (136-145); Thyroid Stim Hormone (TSH) 1.39 uIU/mL (0.358-3.74)
[2023-08-29 14:55] LABS: HIV - WCH Non-Reactive (Nonreactive); Syphilis Antibodies Non-reactive
[2023-08-30 14:10] LABS: ANTINUCLEAR ANTIBODIES DIRECT Negative (Negative)
[2023-08-31 14:10] LABS: HEPATITIS B SURFACE AG Negative (Negative); Hep C Antibodies Non Reactive (Non Reactive); Hepatitis A IgM Antibody Negative (Negative); Hepatitis B Core AB IgM Negative (Negative); Lyme Scn Total Ab w/Rflx Negative (Negative)
== END | disposition home or self-care (01) ==
PROVIDERS: PCP Nurse Practitioner Family
DX: R06.02 Shortness of breath (principal); G62.9 Polyneuropathy, unspecified
CPT/HCPCS: 36415; 80053; 80074; 81002; 82550; 83615; 84443; 85025; 85652; 86038; 86140; 86480; 86618; 86703; 86780; 87086; 87491; 87591

== ENCOUNTER 2023-09-25 07:11 | Outpatient (RCR) | payer MEDICAID, SELFPAY ==
--- NOTE | 2023-09-28 14:16 | BH.DS ---
Discharge Summary Demographics Date of Admission:: 08/17/23 Discharge Date: 09/28/23 Presenting Problems at Admission:: Pt was admitted to [facility] aftercare to maintain gains made in IOP tx. At admission to [facility] aftercare, pt was still experiencing anxiety, depression, and OCD symptoms, but she was functioning better. Discharge Diagnoses:: OCD F 42; PTSD; Major Depressive Disorder, recurrent, severe, without psychosis, Generalized anxiety disorder Reason for Discharge:: Pt is demonstrating a decompensation in OCD and anxiety symptoms and needs higher level of care. Treatment Progress During Treatment & Response: Pt responded well to treatment AEB pt's consistent attendance, ongoing attentiveness and engagement in group discussions, however, pt's OCD symptoms continue to significantly impact pt's functioning and daily life. Additionally, pt has chosen to be unmedicated for her OCD and she is now recognizing that this is hindering her ability to make more progress. [facility] staff is in agreement that pt needs higher level of care. Issues Still to be Addressed:: Obsessions with compulsions that impact pt's daily functioning. Compulsions include handwashing and excessive cleaning. Pt also reports numerous avoidance/safety behaviors including wearing a mask, avoiding places in her house, and not touching objects with her hands. Discharge Recommendations/Instructions:: Pt will be readmitted into [facility] level of care on 10/03/23. Pt was also given information for [facility] in [place] should pt decide to voluntarily admit herself prior to [facility] admission. Discharge Handout
== END 2023-09-28 06:52 | disposition home or self-care (01) ==
LOC: BHOG 07:11
PROVIDERS: PCP Nurse Practitioner Family; Referring Provider Psychiatry & Neurology Psychiatry; Visit Provider Psychiatry & Neurology Psychiatry
DX: Z00.00 Encounter for general adult medical examination without abnormal findings (principal)

== ENCOUNTER 2023-10-03 08:00 | Outpatient (RCR) | payer MEDICAID, SELFPAY ==
--- NOTE | 2023-10-03 09:05 | BH.SGPN.GN ---
Behaviors/Verbalizations/Mental Status: [] Eye contact is poor. Motor activity is appropriate. Appearance is casual. Speech is Appropriate. Mood is anxious. Affect is congruent. Thoughts are linear and logical. No evidence of psychosis. Reviewed daily check in sheet and no reports of suicidal ideations or intent. Client Response/Progress/Benefit: [] Pt was an active participant in group discussion. Attentive. Daily symptom tracker notes /5 for anxiety and /5 for depression. This was patient's first day in IOP level of care. Shared with the group that she had recently completed IOP and while she noted improvement in the program she recently decompensated. She did not elaborate on her mental health struggles with the group, however did report healthy anxiety and germ issues. She has not worked since March which is impacting her self-esteem. She had not followed through with medication recommendations in the past however appears Ready to start a medication for her OCD however this has caused intrusive thoughts about the possible negative effects. Group empathized with her medication anxiety and provided feedback as well as challenged negative thoughts which was beneficial. Will continue in IOP to decrease intrusive thoughts and compulsions to improve functioning. Narrative Note: []
--- NOTE | 2023-10-03 10:10 | BH.SGPN.GN ---
Behaviors/Verbalizations/Mental Status: []Eye contact is good. Motor activity is appropriate. Appearance is casual. Speech is Appropriate. Mood is anxious. Affect is congruent. Thoughts are linear and logical. No evidence of psychosis. Client Response/Progress/Benefit: [] Pt was an engaged participant AEB listening attentively to others, taking notes, and providing feedback in small group discussions. Attentive during psychoeducation AEB by note taking and providing some input. Pt worked along with peers in small groups to define inappropriate guilt and appropriate guilt. Interactive discussion on examples of both inappropriate and appropriate guilt. Pt able to connect impact inappropriate guilt can have on MH. Pt gave an example of feeling like it is her job to make other people feel better as inappropriate guilt. Benefited from increased awareness of guilt and the differences between appropriate and inappropriate guilt. Will continue in IOP to prevent decompensation, improve daily functioning, and reduce compulsions. Narrative Note: []
--- NOTE | 2023-10-03 11:15 | BH.SGPN.GN ---
Behaviors/Verbalizations/Mental Status: []Pt alert and oriented, casually dressed and groomed, wearing mask. Eye contact good. Motor activity appropriate. Speech within normal limits. Affect congruent, mood depressed, anxious. Thoughts linear, logical, no signs of hallucinations or delusions. Client Response/Progress/Benefit: [] Pt engaged participant AEB listening attentively to others and providing input throughout group. Pt worked within their small group to identify strategies to manage inappropriate guilt. Identified a personal example of inappropriate guilt as feeling responsible for her dad's emotions. Insight this cues a fear of disappointing others and rejection. Pt wants to work on combatting inappropriate guilt by challenging distortions, maintaining her boundaries, and focusing on self-compassion. Pt seemed to benefit from learning about strategies to manage appropriate and inappropriate guilt. Pt will continue IOP tx to promote mood stability, reinforce healthy boundaries, reduce safety behaviors, and prevent decompensation. Narrative Note: []
--- NOTE | 2023-10-03 12:12 | BH.COMM ---
Communication Note Communication with Client Communication Note: Met with pt to complete initial paperwork and administer the CSSR-S screening and risk assessment. Pt is low risk per the CSSR-S as pt has no history of suicide attempt, no SI, and no history of self-harm. Pt does have thoughts of occasionally and she will have intrusive suicidal ideations, but these ?really scare me and I don?t want to .? Pt has many protective factors including her ed and family. Discussed case with Dr. Casey and pt will be admitted to [facility] tx with a diagnosis of OCD F 42
--- NOTE | 2023-10-03 14:34 | BH.MTP_ITS ---
Master Treatment Plan Patient Information Program Physician:: Dr. Sobia Casey Primary Therapist:: Kami WHITE Psychiatric Diagnoses Psychiatric Diagnoses:: OCD F 42; PTSD; Major Depressive Disorder, recurrent, severe, without psychosis, Generalized anxiety disorder Diagnosis Code(s):: F42 Estimated LOS Estimated LOS (in weeks):: 6 Problem/Goal #1 Problem/Goal #1 Stated Goal:: Pt will reduce overall frequency and intensity of OCD symptoms so that daily functioning is less impaired. Description of Barriers: Pt has severe OCD that is preventing pt from living her life and building relationships. Pt also has history of trauma that reinforces her OCD cleanliness obsessions and compulsions. Pt also has not been medicated for her OCD symptoms for the past several months and she continues to be somewhat reluctant to taking medications. Pt engages in not only many co mpulsions, but many safety behaviors that reinforce her OCD. Functional Impact: Pt is a 33-year-old female with a history of OCD, PTSD, LUX, and MDD. Pt was a participant in [facility] aftercare but her symptoms of OCD were worsening to the severity pt was at during her initial [facility] admission, so pt was referred back to [facility] level of care. Pt reports she has intrusive thoughts about contamination and health and compulsions of handwashing up to 100 times a day. Pt reports feeling like her brain weighs ?a thousand pounds? and that she is constantly ?germ tracking.? 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 Pt currently endorses a depressed mood, crying spells, thoughts of , isolation, avoidance, poor concentration, issues with memory, panic attacks, constant fear, and racing thoughts. Pt's symptoms are impacting her daily, occupational, familial, and social functioning. Goal Relevant Strengths/Supports: Pt has family support, is active in her confucianism, and has outpatient counseling weekly. Objectives Objective #1: Stated Objective: Pt will identify 2-3 anxiety and OCD triggers and 2 coping skills to use to manage anxiety as shown by reducing DSM-5 scores for anxiety and OCD. Interventions: Through group and individual sessions, pt will gain awareness of anxiety and OCD triggers and learn numerous techniques to manage anxiety and OCD symptoms. Therapist will teach mindfulness and other calming techniques to manage symptoms and increase distress tolerance skills. Therapist will also help pt utilize mindfulness skills to sit with the uncomfortable to increase confidence in managing triggers. Discharge Criteria: Pt will have met this goal when pt can identify at least 2 triggers and 2 ways to cope with anxiety and show a reduction of DSM-5 scores for anxiety and OCD. Target Date: 11/14/23 Review Date: 10/24/23 Status: open Objective #2: Stated Objective: Pt will improve ability to cope with OCD symptoms and reduce avoidance by setting and accomplishing 1-2 small exposure goals each week. Interventions: Through group and individual therapy, pt will gain skills o n distress tolerance and sitting with the uncomfortable. Therapist will help pt set small, realistic exposure goals each week. Therapist will have pt practice these goals both in session and at home. Therapist will provide psychoeducation on why this is important to reducing anxiety, OCD, and phobias. Therapist will also provide psychoeducation on intrusive thinking and reducing safety behaviors. Discharge Criteria: Pt will have accomplished this goal when pt can report accomplishing at least 1 exposure goal per week and can report reduced avoidance overall. Target Date: 11/14/23 Review Date: 10/24/23 Status: open Problem/Goal #2 Problem/Goal #2 Stated Goal:: Pt will reduce depressive symptoms, little interest in doing things, and passive thoughts of due to major depressive disorder Description of Barriers: Pt has severe OCD that is preventing pt from living her life and building relationships. Pt also has history of trauma that reinforces her OCD cleanliness obsessions and compulsions. Pt also has not been medicated for her OCD symptoms for the past several months and she continues to be somewhat reluctant to taking medications. Pt engages in not only many compulsions, but many safety behaviors that reinforce her OCD. Functional Impact: Pt is a 33-year-old female with a history of OCD, PTSD, LUX, and MDD. Pt was a participant in [facility] aftercare but her symptoms of OCD were worsening to the severity pt was at during her initial [facility] admission, so pt was referred back to [facility] level of care. Pt reports she has intrusive thoughts about contamination and health and compulsions of handwashing up to 100 times a day. Pt reports feeling like her brain weighs ?a thousand pounds? and that she is constantly ?germ tracking.? 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 Pt currently endorses a depressed mood, crying spells, thoughts of , isolation, avoidance, poor concentration, issues with memory, panic attacks, constant fear, and racing thoughts. Pt's symptoms are impacting her daily, occupational, familial, and social functioning. Goal Relevant Strengths/Supports: Pt has family support, is active in her confucianism, and has outpatient counseling weekly. Objectives Objective #1: Stated Objective: Pt will learn and utilize 2-3 healthy coping strategies to better manage depressive symptoms and reduce DSM-5 symptoms for depression. Interventions: Through group and individual sessions, therapist will help pt identify triggers and warning signs of depression and emotional dysregulation including emotional, physical, and behavioral changes. Therapist will teach pt various coping skills to manage her symptoms. Therapist will use cognitive res tructuring techniques and help pt gain awareness of negative thoughts that reinforce depressive cycles. Therapist will help pt incorporate mindfulness and emotional regulation skills when dealing with difficult situations. Discharge Criteria: Pt will have met this goal when she can report learning and using at least 2 coping skills to manage depressive symptoms and her DSM-5 scores for depression have decreased. Target Date: 11/14/23 Review Date: 10/24/23 Status: open
--- NOTE | 2023-10-04 09:00 | BH.SGPN.GN ---
Behaviors/Verbalizations/Mental Status: [Patient was alert and oriented, appropriately dressed and groomed. Eye contact was good, motor activity normal, speech within normal limits. Affect congruent, mood anxious. Thoughts linear, logical, no signs of hallucinations or delusions. Reviewed Patients symptom tracker and the patient reports low to moderate in?depressed mood and anxiety/panic attacks. Patient does not report symptoms of agitation/irritability/anger, self-harm urges, or thoughts/risk of suicide] Client Response/Progress/Benefit: [Patient was engaged and open to the discussion. Patient reported her mood to be ?pressed?.?Patient reported that her wins go along side each other. Patient stated she had an interview on Monday that made her mood increase positively which in turn she believes allowed her to be able to play [employer] last night. Patient admitted she hasn?t played in while due to her mood but believes the positive energy from Monday has affected her want to play. Patients stressor is her health. Patient shared that she thought she had [place] disease but was misdiagnosed and now it is possible that it could be a tumor instead. Patient was interactive and respectful with other group members about their mental wins and stressors. Patient benefited from the discussion by listening to feedback and giving input on her peer?s stressors and mental health wins. Patient will continue with IOP treatment to help develop healthy skills, promote mood stability, and improve distress tolerance. ?] Narrative Note: []
--- NOTE | 2023-10-04 10:05 | BH.SGPN.GN ---
Behaviors/Verbalizations/Mental Status: [] Eye contact is good. Motor activity is appropriate. Appearance is casual. Speech is Appropriate. Mood is anxious. Affect is congruent. Thoughts are linear and logical. No evidence of psychosis. Client Response/Progress/Benefit: [] Pt was actively engaged, providing input at times, and taking notes throughout session. Connected with the topic of pitfalls and listened to group discussion on internal and external barriers that prevent from choosing a healthier path to mental wellness. Group worked together to identify examples of personal internal pitfalls and pt identified theirs as rushing, isolation, negative self-talk, and shutting down. Pt benefited from group as pt learned to better identify and normalize potential barriers to improving mental health symptoms. Pt also gained awareness of the difference between external triggers and self-sabotaging behaviors. Will continue in IOP to decrease intrusive thoughts, improve functioning, and prevent decompensation. Narrative Note: []
--- NOTE | 2023-10-04 11:40 | BH.NA ---
Physical Data Vital Signs Pulse Rate: 63 Blood Pressure: 117/75 Height/Weight Height: 1.7 m Weight:: 53.524 kg Weight in Pounds: 118.0 lbs Nutritional History Appetite Nutritional Instructions: Describe your appetite:: Good Additional nutritional information:: Client states she still struggles to gain weight after her mold exposure over a year ago, but states she is trying to gain a little weight. Functional Assessment Sleep Pattern Describe any problems with sleeping: Client states she sleeps 5.5-7 hours per night. Sensory/Communication Assess Communication Problems Do you have difficulty understanding what people are saying?: No Medical Problems/History Neurological Conditions Neurological: Other (See comments) (concussion at 10 years old) Pain Assessment Do you have acute or chronic pain?: No Additional History Additional comments:: Client had thought she had Lyme Disease, but states she recently saw ID and they told her she does not have Lyme Disease. Client states she had severe mold exposure in 2021 and had been on medications previously related to that. Client states she is currently being worked up for a possible pituitary tumor and adrenal insufficiency. Substance Abuse Substance Abuse Please describe substance abuse in the last 30 days:: Client denies alcohol, tobacco or substance use. Client states she used to drink coffee but now drinks no caffeine due to her possible adrenal insufficiency. Mental Status Summary Mental Status Significant Findings/Observations on Appearance and Mood:: Client is alert and oriented x 4. Client is casually groomed with good hygiene and is wearing a mask. Client is cooperative with assessment. Client makes good eye contact. Client's voice has normal rate and volume. Client appears mildly anxious with mood congruent affect. Client makes logical associations and has normal processing. Client denies delusions/hallucinations. Client denies SI. Suicide Assessment Suicidal Ideation Are you currently or have you been suicidal in the past?: No Suicidal Intentional Rating Scale (SIRS): No suicidal thoughts (past or present) Physician Notification Past Psychiatric History MH Treatment Hx Past Psychiatric Medications:: Zoloft, was prescribed Luvox but never took it Age of first mental health symptoms: Client started medication for OCD around age 22 in 2011. Describe (age, circumstance, etc) any past hospitalizations: None. Current providers for mental health treatment (counselor, psychiatrist, social work case manager, etc.): Mirian Wolfe at [facility] for counseling Fall Risk Assessment Age Age: Less than 60 Mental Status Mental Status: Willing & able to ask for assistance when needed Physical Status Physical Status: No problems Impairments Impairments: None Elimination Elimination: Continent AND independent Gait or Balance Gait or Balance: Walks independently Hx of Falls History of falls in the past 6 months: No known history Medications/Substances Medications/substances used within the past 24 hours or ordered to administer: None of the medications/substances list above Total Score Total Points:: 0 RN Summary of Impressions Impressions Recommendations Impressions: Psychiatric Issues: 1. Obsessive-compulsive disorder 2. Generalized anxiety disorder 3. Panic disorder 4. Major depressive disorder, recurrent, moderate Impression: General Medical Conditions: Client states her DHEA was 1100, and she is currently being worked up by her PCP for a possible adrenal tumor. Level of Care How do the client's current symptoms and functional deficits support need for this level of care?: Client was in IOP in May 2023 through June 2023 for anxiety and OCD. Client was tapered off mental health medication at that time by her PCP as she was getting treatment for mold exposure. Client returns to IOP at this time due to continued anxiety, OCD rituals (excessive hand washing, germ tracking), erratic moods and panic attacks. Client denies all SI, but states My brain feels like it weighs 1000lbs with all of this anxiety I have. Client states she feels overwhelmed. Client states she is agreeable to try medication, but states she must talk to her PCP first to get approval as she is being worked up for a possible adrenal tumor. IOP will promote gains and prevent further decompensation while providing social support and skills training.
--- NOTE | 2023-10-04 11:49 | PCM.BH.PN_ITS ---
Progress Note Progress Note: History of Present Illness/Interim History: The patient is a 33-year-old single female with a history of OCD, anxiety and depression who has been doing the [facility] behavioral health IOP from May 2023 to July 2023 and then continued in our aftercare program until 10 days ago. The patient did not finish the aftercare program but decompensated while while finishing the program and symptoms got worse so she returned to the IOP for treatment. Mostly she says her OCD and anxiety symptoms are unchanged but her depression worsened about 10 days ago. This note will serve as an interim note and please refer to the psychiatric evaluation done on June 17, 2023 for com plete history. The patient refused medications the entire time she was seen in the IOP despite the fact that she has severe OCD. She has concerns around contamination and health which worsened during the pandemic and if continued to be severe. Patient wears a mask 16/01 and has intrusive thoughts around contamination and getting sick. She has been handwashing up to 100 times a day since 2019 and does excessive laundry over clothing and checking in some rituals. She has had been worked up for and treated for mold and was diagnosed recently with Lyme disease but then she was told that she does not have Lyme disease. In addition now she is being worked up for pituitary issues or adrenal insufficiency because she states that her ACTH was elevated. The patient has a Luvox prescription because she agreed to take this but has never started it. She states today that her depression worsened and she decided to come back to the program but she has not had any passive thoughts of in the past week or so. She was feeling hopelessness and worthlessness and guilt but denies suicidal ideation, plan for suicide, homicidal ideation, hallucinations, delusions or del ever. She is a worrier by nature and lives in constant fear overall her anxieties and OCD obsessions. Current Psychiatric Medications: [] She has Luvox 25 mg prescription but she still has not started it and now states that she is not can to start until her primary care doctor finishes working up her pituitary gland. Discussed with the patient as I thought she could take it without interfering with pituitary t esting but she that she should ask her doctor if it was an affair and started if the doctor says it will not. Mental Status Examination: [] The patient is a slender 33-year-old female who is seen wearing a mask and is ambulatory with a normal gait. She has no psychomotor agitation or retardation and is casually dressed and groomed with good hygiene. She is cooperative and pleasant during the interview. Eye contact is good and speech is normal or somewhat slightly rapid rate today in fluent with no pressure. Mood is anxious. Affect is full and normal. Thought process is goal-directed and organized. Thought content: There is evidence of hopefulness for the future as the patient had a job interview 2 days ago and feels good about it. There is no evidence of passive thoughts of , suicidal ideation, plan for suicide, homicidal ideation, hallucinations, delusions or del. There is continues to be evidence of intrusive thoughts around contamination and health issues and rituals. Reality testing is intact. Intelligence is above average or average. Judgment is intact. Insight is limited but some present. Impulsivity is moderate. Diagnoses: [] 1. Obsessive-compulsive disorder 2. Generalized anxiety disorder 3. Panic disorder 4. Major depressive disorder, recurrent, moderate 5. Work, primary support and health issues Plan: [] The patient will restart or continue the IOP in behavioral health at [facility] as the structure, support, education and group therapy will hopefully prevent worsening of the patient's symptoms which could require hospitalization. She felt safe during the interview and if it anytime she does not feel safe she will let us know or go to the emergency room. The risk, options, possible complications and side effects of the medications were discussed again with the patient and she understands accepts these. Patient agrees to start the Luvox medication 25 mg p.o. daily as soon as her pituitary workup is complete or as soon as she asked the doctor if it would interfere with the testing. She understands her OCD and anxiety will not improve unless she takes medication because her symptoms are so severe that is limiting the amount improvement she can get from therapy alone right now. She will continue to follow-up with her outpatient providers and I will see the patient in follow-up while she is in the IOP program in 2 weeks.
--- NOTE | 2023-10-04 11:56 | BH.DR.ITP ---
Initial Treatment Plan Patient Information Visit Information: ADMISSION DATE: EXPECTED LOS: 4-6 weeks Problems/Symptoms Problem #1:: Anxiety Symptom:: Worry, rumination, intrusive thoughts, checking rituals, fear of illness and contamination, panic attacks Problem #2:: Depression Symptom:: Sadness, recent hopelessness and passive thoughts of , lack of motivation, low energy, fatigue, decreased concentration
[2023-10-04 12:21] VITALS: BP 117/75; PULSE 63
--- NOTE | 2023-10-04 14:47 | BH.MDN ---
Multi-Disciplinary Note Note 45-min Individual: Time Started:: 12:10 Date: 10/04/23 Purpose of session/treatment goals addressed:: To gather information on pt's current stressors, symptoms, triggers, history, and tx goals. Another goal was to build rapport and provide emotional support. Eye Contact:: Good Motor Activity:: Restless Appearance:: Neat Speech:: Rambling and Rapid Mood:: Anxious Affect:: Congruent Thoughts:: Racing and No evidence of hallucinations/delusions noted Staff Interventions:: thought challenging, motivational interviewing, CBT techniques, mindfulness skills, strengths perspective, treatment planning and goal setting Client Response:: Pt responded well to session, open to meeting with therapist. Pt reports she played [employer] last night which pt has not done in months. Pt also felt a confidence boost after getting a job interview recently. Overall, pt has been struggling, but she was proud of those moments. Pt's anxiety and OCD continue to impact her life and daily functioning. Since her last IOP admission, pt has found out that she does not have Lyme's Disease, but pt now is being worked up for pituitary issues or adrenal insufficiency because she states that her ACTH was elevated. Pt reports that she is not just searching for something to be wrong but she wants to rule out anything medical. Pt does admit to being in the contemplation stage in regards to taking medication for her OCD. Pt continues to struggle with fully accepting the severity of her mental health. Pt returns to IOP willing to try something different though, which includes medication per her report. Pt receptive to goal setting with a focus on exposure therapy and increasing self-care practices to reduce depression. Risks/Concerns:: Pt denies any active SI, plan, or intent as of 10/04/23. Pt met with Dr. Casey today and although she was receptive to taking medication, pt is now reporting some hesitation. See psychiatric evaluation. Progress Toward Goals/Plan:: Pt's first week back in IOP tx and she reports feeling some shame about this, but pt is actively challenging these thoughts. Pt met with Dr. Casey today and was encouraged to begin Luvox as pt understands without medication she may continue to hit a barrier in progressing in treatment. Pt's symptoms of OCD continue to impact her daily functioning and prevent pt from ever feeling totally safe at home because of fear of germs. Pt will continue IOP tx to prevent decompensation, monitor medications, and increase distress tolerance skills. Time Stopped:: 12:55
--- NOTE | 2023-10-05 09:05 | BH.SGPN.GN ---
Behaviors/Verbalizations/Mental Status: [] Eye contact is good. Motor activity is appropriate. Appearance is casual. Speech is Appropriate. Mood is anxious. Affect is congruent. Thoughts are linear and logical. No evidence of psychosis. Reviewed daily check in sheet and no reports of suicidal ideations or intent. Client Response/Progress/Benefit: [] Pt was an active participant in group discussion. Attentive. Daily symptom tracker notes 2/5 for depression and anxiety. Able to identify mental health wins and healthy habits. Reports that she is completing exposure tasks aimed at her OCD. She attended a [employer] social event for kids in which she was interacting with 25-40 kids. This event caused significant intrusive health anxiety thoughts. Proud of herself. Ruminating this week on her strained relationship with her brother. Confused on why brother has limited engagement with pt and her mother. I sent him a text. Progress noted. Benefited from group support, encouragement, and feedback. Will continue in IOP to decrease intrusive thoughts and compulsions to improve functioning. Narrative Note: []
--- NOTE | 2023-10-05 10:15 | BH.SGPN.GN ---
. Behaviors/Verbalizations/Mental Status: []Pt alert and oriented, neatly dressed and groomed-wearing a mask. Eye contact good. Motor activity appropriate. Speech within normal limits. Affect congruent, mood anxious. Thoughts linear, logical, no signs of hallucinations or delusions. Client Response/Progress/Benefit: [] Pt an active participant throughout. Participated during interactive discussion on defining conflict (internal/external) and possible benefits to conflict. Attentive during psychoeducation on conflict styles and engaged during small group activity in which peers identified the benefits and consequences to each conflict style. Pt identified their primary conflict style as accommodating type which impacts pt?s mental health and self-esteem. Pt shared ?even when people tell me to be assertive, I?m accommodating.? ?Benefited from increased awareness of the impact of conflict styles in mental health. Will continue in IOP tx to prevent decompensation, monitor medications, and increase overall functioning. Narrative Note: []
--- NOTE | 2023-10-05 15:00 | BH.SGPN.GN ---
Behaviors/Verbalizations/Mental Status: [] Eye contact is good. Motor activity is appropriate. Appearance is casual. Speech is Appropriate. Mood is anxious and depressed. Affect is congruent. Thoughts are linear and logical. No evidence of psychosis. Client Response/Progress/Benefit: [] Pt was an active participant in group discussions and activity. Engaged with peers in activity and identifying healthy ways to approach each conflict scenario. Group discussed various conflict resolution skills that can be useful in addressing conflict outside of IOP. Benefited from practicing and learning conflict resolution skills during group activity. Able to identify areas pt wants to work on to improve how pt manages conflict both internally and externally. Expressed wanting to work on improving her boundaries and willingness to say no rather than just accommodating. Will continue in IOP to stabilize mood, improve functioning in daily life, reduce safety behaviors, and prevent decompensation. Narrative Note: []
--- NOTE | 2023-10-06 12:11 | BH.COMM ---
Communication Note Communication with Client Communication Note: Spoke with pt's outpatient therapist, Mirian Wolfe, on the phone. Purpose of call was continuity of care and to discuss pt's current goals, symptoms, and plan of care.
--- NOTE | 2023-10-12 09:03 | BH.SGPN.GN ---
Behaviors/Verbalizations/Mental Status: [] Eye contact is good. Motor activity is appropriate. Appearance is casual. Speech is Appropriate. Mood is anxious. Affect is congruent. Thoughts are linear and logical. No evidence of psychosis. Reviewed daily check in sheet and no reports of suicidal ideations or intent. Client Response/Progress/Benefit: [] Pt participated at times during the group discussion. Attentive. Daily symptom tracked notes 2/5 for anxiety and 2/5 for depression. Able to identify mental health wins and healthy habits. Pt stated current stressor is having outpatient therapy today in which she is doing EMDR for trauma. Pt reported she is worried about the session because they will be going deeper in the story. Pt stated mental health positive as having an interview today. Pt reported additional positive as being able to manage anxiety to allow workers in her house to fix her dryer. Pt stated her anxiety was spiked, but she got through it. Benefited from group support, encouragement, and feedback. Will continue in IOP to decrease anxious avoidance, increase healthy coping skills, and prevent decompensation.
--- NOTE | 2023-10-12 10:10 | BH.SGPN.GN ---
Behaviors/Verbalizations/Mental Status: []Pt alert and oriented, neatly dressed and groomed. Eye contact good. Motor activity appropriate. Speech within normal limits. Affect congruent, mood anxious. Thoughts linear, logical, no signs of hallucinations or delusions. Client Response/Progress/Benefit: [] Pt was an active participant in group discussion. Attentive during psychoeducation on the CBT [place] (Thoughts, Behaviors, Emotions). Engaged in group discussion on how thoughts and behaviors can contribute to maintaining adverse feelings, such as depression, anxiety, and irritability. Completed personal maintenance cycle for depression and shared that she struggles with intrusive thoughts about germs which maintains the OCD cycle. Shared this maintains depression and anxiety cycles. Pt benefited from increased awareness of the basis of CBT therapy as well as specific thoughts that are impacting pt' progress. Will continue in IOP to prevent decompensation, improve daily functioning, and reduce OCD symptoms. Narrative Note: []
--- NOTE | 2023-10-12 11:10 | BH.SGPN.GN ---
Behaviors/Verbalizations/Mental Status: []Pt alert and oriented, casually dressed and groomed. Eye contact good. Motor activity appropriate. Speech within normal limits. Affect congruent, mood depressed and anxious. Thoughts linear, logical, no signs of hallucinations or delusions. Client Response/Progress/Benefit: []Pt responded well to session, contributing and attentive throughout discussion. Pt identified a negative thought that has kept them stuck. Pt's thought was If I get sick, I won't be able to get away from myself.? Pt reported when they think this way, they get depressed and anxious resulting in increased engagement in safety behaviors and shutting down. Pt worked to reframe the thought by finding more rational, realistic ways to look at the thoughts and then processed them within group setting. Pt reframed the thought to ?When I am sick I am not one giant germ?. Pt appeared to benefit from practicing challenging negative thinking. Pt will continue IOP tx to prevent decompensation, increase mood stability, and continue to reduce distorted thoughts reinforcing OCD sx. ? Narrative Note: []
--- NOTE | 2023-10-13 14:23 | BH.COMM ---
Communication Note Communication with Client Communication Note: Pt canceled her scheduled IOP group and individual session today, 10/13/23.
--- NOTE | 2023-10-17 14:39 | BH.COMM ---
Communication Note Communication with Client Communication Note: This therapist spoke with pt's outpatient therapist, Mirian Wolfe, regarding pt's response to IOP tx, barriers, and plan of care. Discussed pt's ongoing OCD symptoms and pt's reluctance with taking medication to manage her OCD symptoms. Discussed adjusting therapeutic approach and this therapist will address pt's desire to stay in IOP.
--- NOTE | 2023-10-18 14:44 | BH.DS_ITS ---
Discharge Summary Demographics Date of Admission:: 10/03/23 Discharge Date: 10/18/23 Presenting Problems at Admission:: Pt is a 33-year-old female with a history of OCD, PTSD, LUX, and MDD. Pt was a participant in [facility] aftercare but her symptoms of OCD were worsening to the severity pt was at during her initial [facility] admission, so pt was referred back to [facility] level of care. Pt reports she has intrusive thoughts about contamination and health and compulsions of handwashing up to 100 times a day. Pt reports feeling like her brain weighs ?a thousand pounds? and that she is constantly ?germ tracking.? 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 Pt currently endorses a depressed mood, crying spells, thoughts of , isolation, avoidance, poor concentration, issues with memory, panic attacks, constant fear, and racing thoughts. Pt's symptoms are impacting her daily, occupational, familial, and social functioning. Discharge Diagnoses:: OCD F 44; PTSD; Major Depressive Disorder, recurrent, severe, without psychosis, Generalized anxiety disorder Reason for Discharge:: Pt voluntarily discharged from [facility] tx to focus on outp atient counseling and to explore alternatives to medication for OCD management. Treatment Progress During Treatment & Response: Limited progress as pt was discharged within two weeks of admission. Pt recently completed [facility] tx in July 2023 and returned as pt's OCD symptoms were worsening and pt wanted to explore medication under supervision from [facility] psychiatrist. However, pt decided after readmission to [facility], that she did not want to take any mental health medication for her OCD at this time. Issues Still to be Addressed:: Pt is still not medicated for her OCD and her symptoms continue to interfere with her daily functioning. Pt can benefit from working on ERP therapy and increasing distress tolerance skills through exposure. Pt can also benefit from building more balanced core beliefs, practicing self-compassion, boundary setting, and identifying what she wants to do for work. Lastly, pt is working on increasing social connections and building relationships. Discharge Recommendations/Instructions:: At this time pt would like to continue with weekly outpatient therapy and pt wants to take a JAIDA supplement to manage anxiety symptoms at this time. Pt was reminded she can return to [facility] in the future if she wants to explore other medication options in addition to the group support. Discharge Handout
== END 2023-10-18 13:12 | disposition home or self-care (01) ==
LOC: BHIOP 08:00
PROVIDERS: PCP Nurse Practitioner Family; Referring Provider Psychiatry & Neurology Psychiatry; Visit Provider Psychiatry & Neurology Psychiatry
DX: F42.9 Obsessive-compulsive disorder, unspecified (principal); F41.1 Generalized anxiety disorder; F41.0 Panic disorder [episodic paroxysmal anxiety]; F33.1 Major depressive disorder, recurrent, moderate; Z79.899 Other long term (current) drug therapy
CPT/HCPCS: 99214; H2012; H2020; S9480; T1002; 90834

== ENCOUNTER → 2023-11-09 | Outpatient (CLI) | payer MEDICAID, SELFPAY ==
--- NOTE | 2023-11-09 16:23 | US_ITS ---
INDICATION: ABN WT LOSS, IRREG MENSTRATION, ENLARGED LYMPHNODE EXAMINATION: Ultrasound US Pelvis Non-OB Complete TECHNIQUE: Transabdominal pelvic ultrasound was performed. Grayscale and color flow Doppler evaluation of the adnexa. COMPARISON: None. FINDINGS: UTERUS: Anteverted. The uterus measures 7.6 x 2.6 x 4.2 cm. There is no uterine mass. The endometrial stripe measures 8 mm in AP diameter which is within normal limits. RIGHT OVARY: 3.2 x 1.6 x 4.1 cm. Multiple normal small follicles. Internal color vascular flow. LEFT OVARY: 3.0 x 1.4 x 3.3 cm. Multiple normal small follicles. Internal color vascular flow. FREE FLUID: Trace dependent anechoic free fluid in the cul-de-sac. BLADDER: 14.2 x 10.8 x 10.8 cm, anechoic, without wall thickening US/Pelvic (Non ) IMPRESSION: Unremarkable pelvic ultrasound. Trace posterior cul-de-sac free fluid which is likely physiologic. Distended bladder. Ensure ability to void. Electronically Signed: Luis Arango MD at 3:10 EDT ,
== END | disposition home or self-care (01) ==
PROVIDERS: PCP Nurse Practitioner Family; Referring Provider Nurse Practitioner Family; Visit Provider Nurse Practitioner Family
DX: R59.0 Localized enlarged lymph nodes (principal); R53.82 Chronic fatigue, unspecified; R53.81 Other malaise; R06.02 Shortness of breath; R63.4 Abnormal weight loss; N92.6 Irregular menstruation, unspecified; R89.1 Abnormal level of hormones in specimens from other organs, systems and tissues; Z77.120 Contact with and (suspected) exposure to mold (toxic)
CPT/HCPCS: 76856